=== PATIENT | female | born 1960 | race Caucasian/White ===

== ENCOUNTER 2024-09-23 13:42 | Outpatient (AMB) | payer OTHER, SELFPAY ==
--- NOTE | 2024-09-23 13:45 | HO.SPINEOV ---
Vital Signs 09/23/24 14:16 Height 5 ft 5 in Weight 180 lb BMI 30.0 Intake Visit Reasons: left SI Joint Intake Note: Mr. 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 HPI: This 64-year-old female has a history of back pain where she throws out her back for a couple of days. However in December of 2023 she developed a constant left-sided back pain. This started after she changed job activities. The pain is located to this area. It does not radiate. No numbness or weakness. She tried multiple epidural steroid injections for back pain in the past and more recently a left SI joint injection without success. She also has completed physical therapy chiropractic therapy. She is referred to see if she is a candidate for a left SI joint fusion. PMH: Kidney stone Medications: None Allergies: Ampicillin Social history: Currently a long-term disability. Nonsmoker Physical Exam: Pleasant female in obvious agony. Ambulating is in a flexed position and painful. Flexion of the lumbar spine is painful. Meredith sign is negative. Straight leg raise is negative. SI joint provocative tests are mildly positive. Radiological Studies: MRI of the lumbar spine shows mild lumbar degenerative disc disease. No nerve root compression. Impression/Plan: This patient is suffering from left-sided back pain differential diagnosis lumbago without her cause or sacroiliitis. I am hesitant to offer the patient surgery as she did not respond to a SI joint injection. We decided to repeat the injection. The patient prefers it to be done by a different physician to see if this is more successful. She will follow-up after. Thank you for allowing me to participate in your patients care. total time spent was 50 minutes in counseling ,coordination of plan, personal review of imaging, surgical decision making and subsequent plan Ishaan Javed MD, PhD Spine [facility] Trained Neurosurgeon Director, [facility] Orders: Referrals Pain Management Referral M46.1 - Sacroiliitis, not elsewhere classified Coding Level of Care Code New Pt Level 4 (74214) Diagnoses Sacroiliitis, not elsewhere classified M46.1
--- OUTSIDE RECORDS SUMMARY | 2024-09-23 13:46 | XMS_ITS | Continuity of Care Document ---
Author Organization [facility] Address [address] [facility] [place] [address] Care Team Providers Care Electrical Systems Drafter Name Role Phone ANTHONY TOMPKINS Primary Care Provider ANTHONY TOMPKINS Referring Provider Assessment No assessment recorded. Plan of Treatment Reminders Order Date Submit Date Provider Last Modified By Organization Details Last Modified Time Details Appointments CARD - New Patient (30) 2024 01:00P M Dean Morales MD Not available Not available Not available PCP-Offi ce Visit-30 Min 2024 10:30A M Karen Thurston NP Not available Not available Not available Lab None recorded . Referral None recorded . Procedures None recorded . Surgeries None recorded . Imaging None recorded . Medication Orders None recorded . Patient TargetsNo targets recorded. Patient InstructionsNo instructions recorded. Reason for Referral None Reported. Results Created Date Observation Date Name Description Value Unit Range Abnormal Flag Note LastModifiedBy Organization Detail LastModifiedTime 08/02/2008/02/2024 elect rocar diogr am No observ ation record ed. [email or web address] [facility] [address], [address], 08/02/2024 15:17:48 08/02/20 elect rocar diogr am No observ ation record ed. [email or web address] [facility] [address] [facility] [address], [address], 08/09/2024 08:32:31 Result Notes None recorded. Problems Name Problem SNOMED Code Status Onset Date Resolution Date Notes Provider Name and Address Organization Details Recorded Time Ureteric stone 45672071 Completed 12/26/2019 Karen Howard RN null, [facility] 0 11:01:21 Urinary tract infectious disease 41220749 Completed 12/26/2019 Karen Howard RN null, [facility] 0 11:01:15 Depressive disorder 18645998 Active 2021 Maura Narayan LPN null, [facility] 2 16:14:13 Chronic pain 00097981 Active 2021 Maura Narayan LPN null, [facility] 2 16:14:20 Problem Notes None recorded. Procedures Surgical History Date Name Laterality Status Provider Name and Address Organization Details Recorded Time 06/30/20 19 Date of Last Mammogram completed Kathrin sutherland MA [facility] 04/20/2020 13:37:58 01/20/20 19 excision of cyst completed Mary Hinds [facility] 02/08/2019 09:35:35 12/25/19 19 Date of Last Pap Smear completed Kathrin sutherland MA [facility] 04/20/2020 13:38:16 01/05/20 18 Colposcopy completed Jose Cruz Mantilla MD [facility] 01/04/2018 13:55:31 06/02/20 17 Vulvar Biopsy/Excision completed Jose Cruz Mantilla MD [facility] 06/02/2017 14:05:32 05/29/20 17 Paracervical Nerve Block completed Jose Cruz Mantilla MD [facility] 06/01/2017 09:42:52 05/29/20 17 LEEP completed Jose Cruz Mantilla MD [facility] 06/01/2017 09:42:43 04/24/20 17 established patient counseling (25-39 minutes) completed Jose Cruz Mantilla MD [facility] 05/02/2017 10:53:11 04/06/20 17 Colposcopy completed Jose Cruz Mantilla MD [facility] 04/06/2017 15:29:51 05/26/20 16 EXTRA CORPOREAL SHOCKWAVE LITHOTRIPSY (SURG) completed Yudi Dwight [facility] 05/28/2016 11:38:37 04/14/20 16 EXTRA CORPOREAL SHOCKWAVE LITHOTRIPSY (SURG) completed Sandra Cancino [facility] 04/16/2016 09:23:04 04/14/20 16 EXTRA CORPOREAL SHOCKWAVE LITHOTRIPSY (SURG) completed Annelise Ordonez [facility] 06/02/2016 11:44:09 04/02/20 16 CYSTOSCOPY (SURG) completed Sandra Barak [facility] 04/04/2016 11:19:50 Imaging Results None recorded. Procedure Notes None recorded. Medical Equipment None Reported. Allergies Allergen ID Allergen Name Allergen Category Reaction Reaction Severity Criticality Documentation Date Start Date Code Code System Note Provider Name and Address Organization Details Recorded Time 777008 ampicilli n medicatio n rash Not available Not available 04/01/2016 733 RxNorm Annelise abad [facility] 6 13:51:57 913981 amoxicill in medicatio n nausea Not available Not available 04/01/2016 723 RxNorm Annelise abad [facility] 6 13:52:31 466071 erythromy juancarlos medicatio n Not available Not available Not available 03/23/2017 4053 RxNorm OXANA Cat [facility] 7 14:40:38 Medications Name Sig Start Date Stop Date Status Note LastModified by Organization Details LastModified Time cyclobenza cruz 10 mg tablet TAKE 1/2 TO 1 TAB NEEDED FOR MUSCLE SPASM 2 TIMES A DAY. active as needed -kr Not Available Not Available Not Available methocarba mol 500 mg tablet Take 2 tablets every 8 hours by oral route for 5 days. 01/04 completed Not Available Not Available Not Available prednisone 10 mg tablet TAKE 5 TABLETS BY MOUTH DAILY FOR 2 DAYS, THEN TAKE 4 TABLETS DAILY FOR 1 DAY, THEN TAKE 3 TABLETS DAILY FOR 1 DAY, THEN TAKE 2 TABLETS DAILY FOR 1 DAY, THEN TAKE 1 TABLET DAILY FOR 1 DAY (TAKE ALL DOSES IN THE MORNING, AND NO NSAIDS) 08/02 completed Not Available Not Available Not Available doxycyclin e hyclate 100 mg capsule Take 1 capsule twice a day by oral route for 7 days. 01/03 completed Not Available Not Available Not Available oxybutynin chloride ER 10 mg tablet,ext ended release 24 hr 05/22 completed Not Available Not Available Not Available ibuprofen 800 mg tablet TAKE 1 TABLET BY MOUTH EVERY 8 HOURS NEEDED WITH FOOD OR MILK 08/02 completed Not Available Not Available Not Available alprazolam 1 mg tablet TAKE 1 TABLET BY MOUTH ONCE 1 HOUR PRIOR TO INJECTIO N 08/02 completed Not Available Not Available Not Available chlorzoxaz one 500 mg tablet TAKE 1 TABLET BY MOUTH 2 TO 3 TIMES A DAY DIRECTED FOR MUSCLE SPASM active as needed -kr Not Available Not Available Not Available phenazopyr idine 200 mg tablet 05/22 completed Not Available Not Available Not Available ondansetro n HCl 4 mg tablet 05/22 completed Not Available Not Available Not Available ketorolac 10 mg tablet 05/22 completed Not Available Not Available Not Available oxycodone- acetaminop hen 5 mg-325 mg tablet Take 1 tablet every 8 hours by oral route. 01/04 completed Not Available Not Available Not Available hydromorph one 2 mg tablet 05/22 completed Not Available Not Available Not Available famotidine 20 mg tablet TAKE 1 TABLET BY MOUTH ONCE DAILY AT BEDTIME NEEDED 08/02 completed Not Available Not Available Not Available lorazepam 0.5 mg tablet 01/04 completed Not Available Not Available Not Available tamsulosin 0.4 mg capsule 05/22 completed Not Available Not Available Not Available cephalexin 500 mg capsule Take 1 capsule every 6 hours by oral route for 7 days. 06/30 completed Not Available Not Available Not Available SKELAXIN 400 mg tablet Take 2 tablets 3 times a day by oral route as needed. 08/02 completed Not Available Not Available Not Available gabapentin 300 mg capsule TAKE 1 CAPSULE IN THE MORNING AND AFTERNOO N, AND TAKE 2 CAPS AT BEDTIME 08/02 completed Not Available Not Available Not Available diclofenac sodium 75 mg tablet,del ayed release TAKE 1 TABLET BY MOUTH TWICE DAILY NEEDED FOR PAIN WITH FOOD NO OTHER NSAIDS 08/02 completed Not Available Not Available Not Available diclofenac sodium 50 mg tablet,del ayed release 01/04 completed Not Available Not Available Not Available levofloxac in 500 mg tablet Take 1 tablet every 24 hours by oral route for 6 days. 05/22 completed Not Available Not Available Not Available ondansetro n 4 mg disintegra ting tablet 05/22 completed Not Available Not Available Not Available naproxen 500 mg tablet 05/22 completed Not Available Not Available Not Available diazepam 5 mg tablet 05/22 completed Not Available Not Available Not Available oxycodone 5 mg tablet 07/01 completed Not Available Not Available Not Available cyclobenza cruz 5 mg tablet Take 1 tablet every day by oral route. 01/03 completed Not Available Not Available Not Available 10/03 (28) 1 mg-20 mcg (21)/75 mg (7) tablet TAKE 1 TAB(S) ORALLY ONCE A DAY active Not Available Not Available No t Available Vitamin D3 01/04 completed Not Available Not Available Not Available gabapentin 05/11 completed not taking- AH Not Available Not Available Not Available oxycodone 10 mg tablet 07/01 completed Not Available Not Available Not Available Vitals Date Recorded Body height Body mass index (BMI) Body weight Oxygen saturation Oxygen saturation in Arterial blood by Pulse oximetry Heart rate Systolic blood pressure Diastolic blood pressure Provider Name and Address Organization Details Last Updated DateTime 4 165.1 cm 30.5 kg/m2 84210.4 g 98 % 98 % 101 /min 120 mm[Hg] 86 mm[Hg] Brenda Tong [facility] 4 10:47:40 Social History Question Answer Notes LastModified by Organizat ion Details LastModified Time Tobacco Smoking Status Former Smoker Annelise abad [facility] 04/01/2016 13:54:06 What Is Your Level Of Alcohol Consumption? 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 12/24/2018 Information n ot available 04/07/2019 Are You Sexually Active? Yes Information not available 04/20/2020 Sex: Female Functional Status None recorded. Mental Status None recorded. Family History Relationship Description Onset Age of this Age Resolved Age Notes LastModified by Organization Details LastModified Time Father No current problems or disability Not available 04/01 13:54:27 Mother No current problems or disability Not available 04/01 13:54:27 Maternal Grandfather Kidney disease Not available 2015 13:54:56 Medical History Condition Response diabetes N cancer N HIV or AIDS N arthritis Y heart disease N metal implants N anesthesia allergy/complications N lung disease N asthma N glaucoma N depression N high blood pressure N GERD / reflux N other N CVA/stroke N thyroid disease or other endocrine probl ems N nausea/vomiting Y Gynecological History Statement/Question Response Date of Last Mammogram 06/30/2019 Date of LMP 09/14/2013 Para 5 Perform self breast exam N Living children 5 History of abnormal pap yes x2 Ovarian Cysts N 6 Abortions spontaneous Contraception None Genital Herpes N Fibroids N Gonorrhea/Chlamydia N Date of Last Pap Smear 12/24/2018 Obstetrics History GPAL:G 0 P 0 0 0 0 Past Encounters Encounter ID Performer Location Encounter Start Date Encounter Closed Date Diagnosis/Indication Diagnosis SNOMED-CT Code Diagnosis ICD10 Code Diagnosis Note [id number] Anthony Tompkins MD [facility] [address] [facility] [place] [address] 08/02/2024 13:45:49 08/02/2024 15:14:24 Chronic pain 71869165 G89.29 in back w/ flare that started this year.still w/ painfollow up w/ spine centercont w/ HEP Impaired g lucose tolerance 0642900 R73.02 w/ prior labscheck labs Dizziness 586182145 R42 intermitte ntuncertai n causecont w/ adequate hydrationh x of near syncope so will r/o cardiac origin Near syncope 951526947 R 55 ekg w/ some IVCD-refer to cardiology [id number] Anthony Tompkins MD [facility] [address] [facility] [place] [address] 09/01/2024 10:28:09 09/01/2024 11:42:14 Near syncope 125221232 R55 ekg w/ some IVCD-await ing echo and cardiology consult Dizziness 767474180 R42 intermitte ntnew room spinning dizziness suggestive for mild vertigo.re viewed etiology and treatment options.De clined script for meclizine. reviewed OTC med she can try.cont w/ adequate hydrationT here is also a different type of dizziness she experience s associated w/ the near syncopehx of near syncope so will r/o cardiac origin Health Concerns Section Related Observation LastModified by Organization Detai ls LastModified Time None Recorded Concern Status LastModified by Organization Details LastModified Time None Recorded Payers Encounter Date Sequence Insurance Name Policy Number Policy Jasmine Covered Member ID Jasmine Member ID Guarantor Name 09/01/2024 1 [facility] Glenna Clark [id number] Glenna Clark Notes Date Note Type Note Provider Name and Address Organization Details Recorded Time 09/01/2024 text/html pt presents toda y for follow up near syncope 1 month. RL pt presents to follow up from near syncopeA couple days ago she was in the store- felt like everything drained, feels shitty and sweaty, squatted down and waited for it to pass. Feels weak at the time. Makes her want to lay down.Her dtr and son have similar spells. Takes a few minutes to recover.Doesn't feel palpitations, CP, or dyspnea.Has had these spells since childhood.pt did have a dizzy spell when she laid down last night. Same as prior. Was a room spinning dizziness. Which is different from her near syncope.She does have an upcoming echo and cardiology appt in [place]. Anthony Tompkins MD [address] [place] [address], [place], [address], [facility] 09/05/2024 09:47:36 OBGyn Episode No OBEpisode recorded.
--- OUTSIDE RECORDS SUMMARY | 2024-09-23 13:46 | XMS_ITS | Data Portability ---
Author Organization [facility] Address [address] [facility] [place] [address] Care Team Providers Care Electrical Engineer Name Role Phone ANTHONY COVINGTON Primary Care Provider ANTHONY COVINGTON Referring Provider Assessment No assessment recorded. Plan of Treatment Reminders Order Date Submit Date Provider Last Modified By Organization Details Last Modified Time Details Appointments CARD - New Patient (30) 2024 01:00P M Dean Morales MD Not available Not available Not available PCP-Offic e Visit-30 Min 2024 10:30A M Karen Thurston NP Not available Not available Not available Lab glucose, fingersti ck, blood 2023 024 scott In-Office Order, Internal Use Only DO Not Attach Compendium DO Not Attach Compendium, Do Not Delete/merge, [id number] 05/11/2024 15:37:16 CBC w/ auto diff 2023 024 [facility] (Outpatient Registration) , [address] [place], [address], 05/11/2024 20:23:14 CMP, serum or plasma 2023 024 [facility] (Outpatient Registration) , [address] [place], [address], 05/11/2024 20:48:35 rapid flu (A+B) 2023 024 scott [facility], [address] [place], [address], 05/11/2024 15:37:14 SARS CoV 2 RNA (COVID-19 ), QL, photograph enlarger-PCR, respirato ry specimen 2023 [facility] (Outpatient Registration) , [address] [place], [address], 05/12/2024 10:55:24 HLA-B27, qual 2023 [facility] (Outpatient Registration) , [address] [place], [address], 08/10/2024 14:09:30 CMP, serum or plasma 2023 024 [facility] (Outpatient Registration) , [address] [place], [address], 08/02/2024 16:05:11 HbA1c (hemoglob in A1c), blood 2023 024 [facility] (Outpatient Registration) , [address] [place], [address], 08/02/2024 19:25:13 CBC w/ auto diff 2023 024 [facility] (Outpatient Registration) , [address] [place], [address], 08/02/2024 15:38:42 Referral cardiolog ist referral - several events over the years of near syncope. Dtr has OWEN. Most recent was a month ago- 2023 [email or web address] Dean Morales MD, [address] [place], [address], 09/23/2024 09:41:33 Procedures pulse oximetry (PROC) 2023 scott [facility], [address] , [place], [address], 05/11/2024 15:37:15 Surgeries None recorded. Imaging electroca rdiogram 2023 024 [facility], [address] [facility], [facility] [address], [place], [address], 08/02/2024 15:17:48 US, echocardi ogram, transthor acic, complete, w/ color flow - near syncope, ekg w/ IVCD and suggestiv e for LAE 2023 024 [facility] ([facility]), [address] [facility], [place], [address], 09/22/2024 14:46:22 Medication Orders doxycycli ne hyclate 100 mg capsule [facility]22 [id number] [address] [place], [address], 01/04/2024 16:43:47 cyclobenz aprine 10 mg tablet 2023 024 [facility]/Pharmacy #[id number], [address] [place], [address], 05/11/2024 13:41:51 Patient TargetsNo targets recorded. Patient Instructions Encounter Date Encounter Id Patient Instructions Last Modified By Organization Details Last Modified Time 09/16/2022 [id number] You have had an Urgent Care Visit which is designed to address acute issues. It does not represent an exhaustive evaluation of your symptom complex, but is an attempt to treat and manage the most likely cause of your most pressing physical issues. If you are not improved in the time frame that we have discussed, please seek the advice of your PCP who is in a position to order further diagnostic testing and possible specialist consultation. If your condition is worsening despite the treatment recommendations please do not wait to see your PCP and do proceed to the closest ER where a comprehensive evaluation including consideration to lab and other diagnostic testing as well as consultation is more expeditiously accessible. If you were prescribed medications they have been directly submitted to your pharmacy on file. Please make sure you finish all your medications and if you develop major side effects related to them please do stop taking them and check with your PCP to see if you need to get an alternative medication. If you had any laboratory testing or XRAYs done at today's visit, please make sure you obtain your results from us tomorrow or the time frame discussed at your visit, you may also follow up with your PCP for test results. [email or web address] Not available 09/16/2022 13:30:55 01/04/2024 [id number] As above, Questi ons answered [email or web address] Not available 01/04/2024 19:21:31 Pt acknowleged understanding of the mutual plan of care. Pt's questions were answered concerning any presented medications, treatments, expected outcomes, and reasons for follow up. Given written information and questions were answered. You have had an Urgent Care Visit which is designed to address acute issues. If you are not improved in the time frame that we have discussed, please seek the advice of your PCP who is in a position to order further diagnostic testing and possible specialist consultation. If your condition is worsening despite the treatment recommendations please do not wait to see your PCP and do proceed to the closest ER where a comprehensive evaluation including consideration to lab and other diagnostic testing as well as consultation is more expeditiously accessible If you were prescribed medications they have been directly submitted to your pharmacy on file. Please make sure you finish all your medications and if you develop major side effects related to them please do stop taking them and check with your PCP to see if you need to get an alternative medication. If you had any laboratory testing or XRAYs done at today's visit, please make sure you obtain your results from us tomorrow or the time frame discussed at your visit, you may also follow up with your PCP for test results. 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 Dtr has OWEN. Most recent was a month ago- Referring Physician: Karen Thurston, Internal Medicine, Encounter Date: 08/02/2024 Results Created Date Observation Date Name Description Value Unit Range Abnormal Flag Note LastModifiedBy Organization Detail LastModifiedTime 05/11/20 24 05/11/2024 COMPL ETE BLOOD COUNT AUTO DIFF white blood count 12.65 K/uL 3.5-11 .0 high Not Available [facility] [address] [place] [address], [id number] 05/11/2024 20:23:14 05/11/20 24 05/11/2024 COMPL ETE BLOOD COUNT AUTO DIFF red blood count 4.68 M/uL 3.60-4 .80 normal Not Available [facility] [address] [place] [address], [id number] 05/11/2024 20:23:14 05/11/20 24 05/11/2024 COMPL ETE BLOOD COUNT AUTO DIFF hemoglobin 14.5 g/dL 12.0-1 6.0 normal Not Available [facility] [address] [place] [address], [id number] 05/11/2024 20:23:14 05/11/20 24 05/11/2024 COMPL ETE BLOOD COUNT AUTO DIFF hematocrit 41.9 % 36.0-4 8.0 normal Not Available [facility] [address] [place] [address], [id number] 05/11/2024 20:23:14 05/11/20 24 05/11/2024 COMPL ETE BLOOD COUNT AUTO DIFF mean corpuscular volume 89.5 fL 79.0-9 8.0 normal Not Available [facility] [address] [place] [address], [id number] 05/11/2024 20:23:14 05/11/20 24 05/11/2024 COMPL ETE BLOOD COUNT AUTO DIFF mean corpuscular hemoglobin 31.0 pg 25.4-3 4.6 normal Not Available [facility] [address] [place] [address], [id number] 05/11/2024 20:23:14 05/11/20 24 05/11/2024 COMPL ETE BLOOD COUNT AUTO DIFF mean corpuscular HGB conc 34.6 g/dL 30.0-3 6.0 normal Not Available [facility] [address] [place] [address], [id number] 05/11/2024 20:23:14 05/11/20 24 05/11/2024 COMPL ETE BLOOD COUNT AUTO DIFF red cell distribution width 12.7 % 11.5-1 4.5 normal Not Available [facility] [address] [place], [address] 05/11/2024 20:23:14 05/11/20 24 05/11/2024 COMPL ETE BLOOD COUNT AUTO DIFF platelet count 289 K/uL 150-40 0 normal Not Available [facility] [address] [place] [address], [id number] 05/11/2024 20:23:14 05/11/20 24 05/11/2024 COMPL ETE BLOOD COUNT AUTO DIFF neutrophils percent auto 80.0 % 35.0-6 6.0 high Not Available [facility] [address] [place] [address], [id number] 05/11/2024 20:23:14 05/11/20 24 05/11/2024 COMPL ETE BLOOD COUNT AUTO DIFF imm gran pct auto 0.4 % 0.0-0. 6 normal Not Available [facility] [address] [place] [address], [id number] 05/11/2024 20:23:14 05/11/20 24 05/11/2024 COMPL ETE BLOOD COUNT AUTO DIFF lymphocytes percent auto 13.6 % 25.0-4 5.0 low Not Available [facility] [address] [place] [address], [id number] 05/11/2024 20:23:14 05/11/20 24 05/11/2024 COMPL ETE BLOOD COUNT AUTO DIFF monocytes percent auto 5.6 % 0.0-13 .0 normal Not Available [facility] [address] [place] [address], [id number] 05/11/2024 20:23:14 05/11/20 24 05/11/2024 COMPL ETE BLOOD COUNT AUTO DIFF eosinophils percent auto 0.2 % 0.0-8. 0 normal Not Available [facility] [address] [place] [address], [id number] 05/11/2024 20:23:14 05/11/20 24 05/11/2024 COMPL ETE BLOOD COUNT AUTO DIFF basophils percent auto 0.2 % 0.0-1. 0 normal Not Available [facility] [address] [place] [address], [id number] 05/11/2024 20:23:14 05/11/20 24 05/11/2024 COMPL ETE BLOOD COUNT AUTO DIFF NRBC pct auto 0.0 /100_ WBC 0.0 normal Not Available [facility] [address] [place] [address], [id number] 05/11/2024 20:23:14 05/11/20 24 05/11/2024 COMPL ETE BLOOD COUNT AUTO DIFF neutrophils absolute auto 10.12 K/uL 1.5-7. 5 high Not Available [facility] [address] [place] [address], [id number] 05/11/2024 20:23:14 05/11/20 24 05/11/2024 COMPL ETE BLOOD COUNT AUTO DIFF imm gran abs auto 0.05 K/uL 0.00-0 .09 normal Not Available [facility] [address] [place] [address], [id number] 05/11/2024 20:23:14 05/11/20 24 05/11/2024 COMPL ETE BLOOD COUNT AUTO DIFF lymphocytes absolute auto 1.72 K/uL 0.8-4. 8 normal Not Available [facility] [address] [place] [address], [id number] 05/11/2024 20:23:14 05/11/20 24 05/11/2024 COMPL ETE BLOOD COUNT AUTO DIFF monocytes absolute auto 0.71 K/uL 0.4-1. 3 normal Not Available [facility] [address] [place] [address], [id number] 05/11/2024 20:23:14 05/11/20 24 05/11/2024 COMPL ETE BLOOD COUNT AUTO DIFF eosinophils absolute auto 0.02 K/uL 0.0-0. 8 normal Not Available [facility] [address] [place] [address], [id number] 05/11/2024 20:23:14 05/11/20 24 05/11/2024 COMPL ETE BLOOD COUNT AUTO DIFF basophils absolute auto 0.03 K/uL 0.0-0. 6 normal Not Available [facility] [address] [place] [address], [id number] 05/11/2024 20:23:14 05/11/20 24 05/11/2024 COMPL ETE BLOOD COUNT AUTO DIFF NRBC abs auto 0.00 K/uL 0.00 normal Not Available [facility] [address] [place], [address] 05/11/2024 20:23:14 05/11/20 24 05/11/2024 COMPR EHENS LUZMA MET. PANEL sodium 144 mmol/ L 136-14 5 normal Not Available [facility] [address] [place] [address], [id number] 05/11/2024 20:48:35 05/11/20 24 05/11/2024 COMPR EHENS LUZMA MET. PANEL potassium 3.65 mmol/ L 3.5-5. 1 normal Not Available [facility] [address] [place] [address], [id number] 05/11/2024 20:48:35 05/11/20 24 05/11/2024 COMPR EHENS LUZMA MET. PANEL chloride 109 mmol/ L 98-107 high Not Available [facility] [address] [place] [address], [id number] 05/11/2024 20:48:35 05/11/20 24 05/11/2024 COMPR EHENS LUZMA MET. PANEL carbon dioxide 21 mmol/ L 22-29 low Not Available [facility] [address] [place] [address], [id number] 05/11/2024 20:48:35 05/11/20 24 05/11/2024 COMPR EHENS LUZMA MET. PANEL anion gap 17 mmol/ L 10-20 normal Not Available [facility] [address] [place] [address], [id number] 05/11/2024 20:48:35 05/11/20 24 05/11/2024 COMPR EHENS LUZMA MET. PANEL blood urea nitrogen 34 mg/dL 8-23 high Not Available [facility] [address] [place] [address], [id number] 05/11/2024 20:48:35 05/11/20 24 05/11/2024 COMPR EHENS LUZMA MET. PANEL creatinine 0.65 mg/dL 0.51-0 .95 normal Not Available [facility] [address] [place] [address], [id number] 05/11/2024 20:48:35 05/11/20 24 05/11/2024 COMPR EHENS LUZMA MET. PANEL estimated glomerular filt rate 99 GFR Value : mL/mi n/1.7 3 squar e meter s Calcu latio n: CKD-E PI Creat inine Equat ion (2020 ) Chron ic Kidne y Disea se is defin ed as eithe r of the follo wing prese nt for >= 3 month s: - GFR less than 60 mL/mi n/1.7 3 squar e meter s. - Micro album in:Ur . Creat inine Ratio >= 30 mg/g or other marke rs of kidne y damag e Kidne y failu re is less than 15 mL/mi n/1.7 3 squar e meter s This test is not perfo rmed in patie nts under the age of 18. Not Available [facility] [address] [place], [address] 05/11/2024 20:48:35 05/11/20 24 05/11/2024 COMPR EHENS LUZMA MET. PANEL glucose 154 mg/dL 82-115 high Not Available [facility] [address] [place], [address] 05/11/2024 20:48:35 05/11/20 24 05/11/2024 COMPR EHENS LUZMA MET. PANEL calcium 9.2 mg/dL 8.8-10 .2 normal Not Available [facility] [address] [place], [address] 05/11/2024 20:48:35 05/11/20 24 05/11/2024 COMPR EHENS LUZMA MET. PANEL bilirubin total 0.5 mg/dL 0.2-1. 2 normal Not Available [facility] [address] [place], [address] 05/11/2024 20:48:35 05/11/20 24 05/11/2024 COMPR EHENS LUZMA MET. PANEL aspartate amino transferase 14 U/L 5-32 normal Not Available [facility] [address] [place], [address] 05/11/2024 20:48:35 05/11/20 24 05/11/2024 COMPR EHENS LUZMA MET. PANEL alanine aminotransfe rase 10 U/L 5-33 normal Not Available [facility] [address] [place], [address] 05/11/2024 20:48:35 05/11/20 24 05/11/2024 COMPR EHENS LUZMA MET. PANEL total protein 6.8 g/dL 6.4-8. 3 normal Not Available [facility] [address] [place], [address] 05/11/2024 20:48:35 05/11/20 24 05/11/2024 COMPR EHENS LUZMA MET. PANEL albumin level 4.2 g/dL 3.5-5. 2 normal Not Available [facility] [address] [place] [address], 76494 05/11/2024 20:48:35 05/11/20 24 05/11/2024 COMPR EHENS LUZMA MET. PANEL globulin 2.6 gm/dL 2.0-3. 5 normal Not Available [facility] [address] [place], [address] 05/11/2024 20:48:35 05/11/20 24 05/11/2024 COMPR EHENS LUZMA MET. PANEL albumin globulin ratio 1.7 % 1.1-2. 5 normal Not Available [facility] [address] [place], [address] 05/11/2024 20:48:35 05/11/20 24 05/11/2024 COMPR EHENS LUZMA MET. PANEL alkaline phosphatase 82 U/L 35-104 normal Not Available [facility] [address] [place] [address], [id number] 05/11/2024 20:48:35 05/11/20 24 05/12/2024 SARS- COV-2 (NAAT ) sars-cov-2 NOT DETECT ED not detect . The Aptim a SARS- CoV-2 assay is a nucle ic acid ampli ficat ion in vitro diagn ostic test inten ded for the quali tativ e detec tion of RNA from SARS- CoV-2 using Trans cript ion Media aimee Ampli ficat ion (TMA) isola aimee and purif ied from nasop haryn geal (PRODUCT TEST ENGINEER), nasal , mid-t urbin ate, and oroph aryng eal (OP) swab speci mens obtai stephanie from indiv idual s meeti ng COVID -19 clini sugey and/o r epide miolo gical crite campos. The Aptim a TMA metho d is equiv alent in sensi tivit y and speci ficit y to metho ds utili zing PCR and RT-PC R. Resul ts are for the ident ifica tion of SARS- CoV-2 RNA which is gener ally detec table in upper respi rator y sampl es durin g the acute phase of infec tion. Posit luzma resul ts are indic ative of the prese nce of SARS- CoV-2 RNA; clini sugey corre latio n with patie nt histo ry and other diagn ostic infor matio n is neces maximilian to deter mine patie nt infec tion statu s. Posit luzma resul ts do not rule out bacte rial infec tion or co-in fecti on with other virus es. Negat luzma resul ts do not precl ude SARS- CoV-2 infec tion and shoul d not be used as the sole basis for patie nt manag ement decis ions. Negat luzma resul ts must be combi stephanie with clini sugey obser vatio ns, patie nt histo ry, and epide miolo gical infor matio n. The Aptim a SARS- CoV-2 assay is only for use under the Food and Drug Admin istra tion' s Emerg ency Use Autho rizat ion (EUA) . Not Available [facility] [address] [place] [address], [id number] 05/12/2024 10:55:24 05/11/20 24 05/11/2024 rapid flu (A+B) Flu Type A negati ve Not Available [address] [place], [address], 05/11/2024 13:57:41 05/11/20 24 05/11/2024 rapid flu (A+B) Flu Type B negati ve Not Available [address] [place], [address], 05/11/2024 13:57:41 05/11/20 24 05/11/2024 rapid flu (A+B) Internal Control Valid Not Available [address] [place], [address], 05/11/2024 13:57:41 05/11/20 24 05/11/2024 rapid flu (A+B) Lot # [id number] Not Available [address] [place], [address], 05/11/2024 13:57:41 05/11/20 24 05/11/2024 rapid flu (A+B) Exp. Date 5 Not Available [address] [place], [address], 05/11/2024 13:57:41 05/11/20 24 05/11/2024 pulse oxime try (PROC ) Unknown Analyte 103 Not Available [address] [place], [address], 05/11/2024 13:57:42 05/11/20 24 05/11/2024 pulse oxime try (PROC ) Unknown Analyte 97 Not Available [address] [place] [place], [address], 05/11/2024 13:57:42 05/11/20 24 05/11/2024 glucjoelle kelley se, blood Glucose Result- Ref Range (70 - 106 mg/dl) 171 Not Available In-Of fice Order Internal Use Only DO Not Attach Compendium DO Not Attach Compendium, Do Not Delete/merge, [id number] 05/11/2024 13:58:21 05/11/2005/11/2024 glucjoelle kelley se, blood Lot # [id number] Not Available In-Office Order Internal Use Only DO Not Attach Compendium DO Not Attach Compendium, Do Not Delete/merge, [id number] 05/11/2024 13:58:21 05/11/20 24 05/11/2024 gluco se, finge rstic k, blood Exp Date 5 Not Available In-Office Order Internal Use Only DO Not Attach Compendium DO Not Attach Compendium, Do Not Delete/merge, [id number] 05/11/2024 13:58:21 08/02/20 24 08/02/2024 COMPL ETE BLOOD COUNT AUTO DIFF white blood count 10.42 K/uL 3.5-11 .0 normal Not Available [facility] [address] [place] [address], [id number] 08/02/2024 15:38:42 08/02/20 24 08/02/2024 COMPL ETE BLOOD COUNT AUTO DIFF red blood count 4.83 M/uL 3.60-4 .80 high Not Available [facility] [address] [place] [address], [id number] 08/02/2024 15:38:42 08/02/20 24 08/02/2024 COMPL ETE BLOOD COUNT AUTO DIFF hemoglobin 14.5 g/dL 12.0-1 6.0 normal Not Available [facility] [address] [place] [address], [id number] 08/02/2024 15:38:42 08/02/20 24 08/02/2024 COMPL ETE BLOOD COUNT AUTO DIFF hematocrit 44.7 % 36.0-4 8.0 normal Not Available [facility] [address] [place] [address], [id number] 08/02/2024 15:38:42 08/02/20 24 08/02/2024 COMPL ETE BLOOD COUNT AUTO DIFF mean corpuscular volume 92.5 fL 79.0-9 8.0 normal Not Available [facility] [address] [place] [address], 42505 08/02/2024 15:38:42 08/02/20 24 08/02/2024 COMPL ETE BLOOD COUNT AUTO DIFF mean corpuscular hemoglobin 30.0 pg 25.4-3 4.6 normal Not Available [facility] [address] [place] [address], [id number] 08/02/2024 15:38:42 08/02/20 24 08/02/2024 COMPL ETE BLOOD COUNT AUTO DIFF mean corpuscular HGB conc 32.4 g/dL 30.0-3 6.0 normal Not Available [facility] [address] [place], [address] 08/02/2024 15:38:42 08/02/20 24 08/02/2024 COMPL ETE BLOOD COUNT AUTO DIFF red cell distribution width 13.6 % 11.5-1 4.5 normal Not Available [facility] [address] [place], [address] 08/02/2024 15:38:42 08/02/20 24 08/02/2024 COMPL ETE BLOOD COUNT AUTO DIFF platelet count 309 K/uL 150-40 0 normal Not Available [facility] [address] [place], [address] 08/02/2024 15:38:42 08/02/20 24 08/02/2024 COMPL ETE BLOOD COUNT AUTO DIFF neutrophils percent auto 63.2 % 35.0-6 6.0 normal Not Available [facility] [address] [place] [address], [id number] 08/02/2024 15:38:42 08/02/20 24 08/02/2024 COMPL ETE BLOOD COUNT AUTO DIFF lymphocytes percent auto 29.1 % 25.0-4 5.0 normal Not Available [facility] [address] [place] [address], 70474 08/02/2024 15:38:42 08/02/20 24 08/02/2024 COMPL ETE BLOOD COUNT AUTO DIFF monocytes percent auto 6.7 % 0.0-13 .0 normal Not Available [facility] [address] [place] [address], [id number] 08/02/2024 15:38:42 08/02/20 24 08/02/2024 COMPL ETE BLOOD COUNT AUTO DIFF eosinophils percent auto 0.8 % 0.0-8. 0 normal Not Available [facility] [address] [place] [address], [id number] 08/02/2024 15:38:42 08/02/20 24 08/02/2024 COMPL ETE BLOOD COUNT AUTO DIFF basophils percent auto 0.2 % 0.0-1. 0 normal Not Available [facility] [address] [place] [address], [id number] 08/02/2024 15:38:42 08/02/20 24 08/02/2024 COMPL ETE BLOOD COUNT AUTO DIFF neutrophils absolute auto 6.59 K/uL 1.5-7. 5 normal Not Available [facility] [address] [place], [address] 08/02/2024 15:38:42 08/02/20 24 08/02/2024 COMPL ETE BLOOD COUNT AUTO DIFF lymphocytes absolute auto 3.03 K/uL 0.8-4. 8 normal Not Available [facility] [address] [place] [address], [id number] 08/02/2024 15:38:42 08/02/20 24 08/02/2024 COMPL ETE BLOOD COUNT AUTO DIFF monocytes absolute auto 0.70 K/uL 0.4-1. 3 normal Not Available [facility] [address] [place] [address], 42165 08/02/2024 15:38:42 08/02/20 24 08/02/2024 COMPL ETE BLOOD COUNT AUTO DIFF eosinophils absolute auto 0.08 K/uL 0.0-0. 8 normal Not Available [facility] [address] [place] [address], [id number] 08/02/2024 15:38:42 08/02/20 24 08/02/2024 COMPL ETE BLOOD COUNT AUTO DIFF basophils absolute auto 0.02 K/uL 0.0-0. 6 normal Not Available [facility] [address] [place] [address], [id number] 08/02/2024 15:38:42 08/02/20 24 08/02/2024 COMPR EHENS LUZMA MET. PANEL sodium 139 mmol/ L 136-14 5 normal Not Available [facility] [address] [place] [address], [id number] 08/02/2024 16:05:11 08/02/20 24 08/02/2024 COMPR EHENS LUZMA MET. PANEL potassium 3.9 mmol/ L 3.5-5. 1 normal Not Available [facility] [address] [place] [address], 69057 08/02/2024 16:05:11 08/02/20 24 08/02/2024 COMPR EHENS LUZMA MET. PANEL chloride 101 mmol/ L 98-107 normal Not Available [facility] [address] [place] [address], [id number] 08/02/2024 16:05:11 08/02/20 24 08/02/2024 COMPR EHENS LUZMA MET. PANEL carbon dioxide 27.5 mmol/ L 22-29 normal Not Available [facility] [address] [place], [address] 08/02/2024 16:05:11 08/02/20 24 08/02/2024 COMPR EHENS LUZMA MET. PANEL anion gap 15 mmol/ L 10-20 normal Not Available [facility] [address] [place], [address] 08/02/2024 16:05:11 08/02/20 24 08/02/2024 COMPR EHENS LUZMA MET. PANEL blood urea nitrogen 27 mg/dL 8-23 high Not Available [facility] Department [address] [place], [address] 08/02/2024 16:05:11 08/02/20 24 08/02/2024 COMPR EHENS LUZMA MET. PANEL creatinine 0.79 mg/dL 0.50-0 .90 normal Not Available [facility] [address] [place] [address], [address] 08/02/2024 16:05:11 08/02/20 24 08/02/2024 COMPR EHENS LUZMA MET. PANEL estimated glomerular filt rate 84 GFR Value : mL/mi n/1.7 3 squar e meter s Calcu latio n: CKD-E PI Creat inine Equat ion (2020 ) Chron ic Kidne y Disea se is defin ed as eithe r of the follo wing prese nt for >= 3 month s: - GFR less than 60 mL/mi n/1.7 3 squar e meter s. - Micro album in:Ur . Creat inine Ratio >= 30 mg/g or other marke rs of kidne y damag e Kidne y failu re is less than 15 mL/mi n/1.7 3 squar e meter s This test is not perfo rmed in patie nts under the age of 18. Not Available [facility] [address] [place] [address], [address] 08/02/2024 16:05:11 08/02/20 24 08/02/2024 COMPR EHENS LUZMA MET. PANEL glucose 101 mg/dL 82-115 normal Not Available [facility] [address] [place], [address] 08/02/2024 16:05:11 08/02/20 24 08/02/2024 COMPR EHENS LUZMA MET. PANEL calcium 9.8 mg/dL 8.8-10 .2 normal Not Available [facility] [address] [place], [address] 08/02/2024 16:05:11 08/02/20 24 08/02/2024 COMPR EHENS LUZMA MET. PANEL bilirubin total 0.5 mg/dL 0.2-1. 2 normal Not Available [facility] [address] [place], [address] 08/02/2024 16:05:11 08/02/20 24 08/02/2024 COMPR EHENS LUZMA MET. PANEL aspartate amino transferase 18 U/L 5-32 normal Not Available [facility] Department [address] [place], [address] 08/02/2024 16:05:11 08/02/20 24 08/02/2024 COMPR EHENS LUZMA MET. PANEL alanine aminotransfe rase < 5 U/L 5-33 low Not Available [facility] Department [address] [place], [address] 08/02/2024 16:05:11 08/02/20 24 08/02/2024 COMPR EHENS LUZMA MET. PANEL total protein 7.6 g/dL 6.4-8. 3 normal Not Available [facility] [address] [place], [address] 08/02/2024 16:05:11 08/02/20 24 08/02/2024 COMPR EHENS LUZMA MET. PANEL albumin level 4.5 g/dL 3.5-5. 2 normal Not Available [facility] [address] [place], [address] 08/02/2024 16:05:11 08/02/20 24 08/02/2024 COMPR EHENS LUZMA MET. PANEL globulin 3.1 gm/dL 2.0-3. 5 normal Not Available [facility] [address] [place], [address] 08/02/2024 16:05:11 08/02/20 24 08/02/2024 COMPR EHENS LUZMA MET. PANEL albumin globulin ratio 1.5 % 1.1-2. 5 normal Not Available [facility] [address] [place], [address] 08/02/2024 16:05:11 08/02/20 24 08/02/2024 COMPR CECILIA LUZMA MET. PANEL alkaline phosphatase 92 U/L 35-104 normal Not Available [facility] Department [address] [place], [address] 08/02/2024 16:05:11 08/02/20 24 08/02/2024 HEMOG LOBIN A1C hemoglobin A1C % 5.5 % 4.0-5. 7 normal % of the total HgB Inter preta tion ----- ----- ----- --- ----- ----- ----- - <5.7 Consi stent with the absen ce of diabe balbir 5.7-6 .4 Consi stent with incre ased risk for diabe balbir (pred iabet es) > or = to 6.5 Consi stent with Diabe balbir Not Available [facility] [address] [place], [address] 08/02/2024 19:25:13 08/02/20 24 08/10/2024 HLA-B 27 hla-B27 NEGATI VE . HLA-B *27 Negat luzma B27 allel e inter preta tion for all loci based on IMGT/ HLA datab ase versi on 3.51. 0 This test was devel oped and its perfo rmanc e blake cteri stics deter mined by [facility]. It has not been clear ed or appro nickie by the Food and Drug Admin istra tion. [facility] CLIA ID [id number] ines r [id number] This test was perfo rmed using Polym erase Chain React ion (PCR) and Seque nce Speci fic Oligo nucle otide Probe s (SSOP ) techn ique. Seque nce Based Typin g (SBT) may be used as a suppl ement al metho d when neces maximilian. If you have quest ions, pleas e call HLA custo sohail servi ce at [phone] or email at [email or web address]. Perfo rmed at: 01 - [facility] [place] [facility] [address] , [place] [address] Lab Direc tor: Fely phillips PhD, Phone : [phone] Not Available [facility] [address] [facility], [place], [address] 08/10/2024 14:09:30 08/02/20 24 08/02/2024 elect rocar diogr am No observ ation record ed. [email or web address] [facility] [address], [address], 08/02/2024 15:17:48 08/02/20 elect rocar diogr am No observ ation record ed. [email or web address] [facility] [address], [address], 08/09/2024 08:32:31 Result Notes None recorded. Problems Name Problem SNOMED Code Status Onset Date Resolution Date Notes Provider Name and Address Organization Details Recorded Time Ureteric stone 56054987 Completed 12/26/2019 JB Jones, [facility] 0 11:01:21 Urinary tract infectious disease 32068062 Completed 12/26/2019 Karen Howard RN null, [facility] 0 11:01:15 Depressive disorder 09935132 Active 2021 CHINO Barillas, [facility] 2 16:14:13 Chronic pain 09894745 Active 2021 CHINO Barillas, [facility] 2 16:14:20 Problem Notes None recorded. Procedures Surgical History Date Name Laterality Status Provider Name and Address Organization Details Recorded Time 06/30/20 19 Date of Last Mammogram completed Kathrin sutherland MA [facility] 04/20/2020 13:37:58 01/20/20 19 excision of cyst completed Mary Hinds [facility] 02/08/2019 09:35:35 12/25/19 19 Date of Last Pap Smear completed Kathrin sutherland MA [facility] 04/20/2020 13:38:16 01/05/20 18 Colposcopy completed Jose Cruz Mantilla MD [facility] 01/04/2018 13:55:31 06/02/20 17 Vulvar Biopsy/Excision completed Jose Cruz Mantilla MD [facility] 06/02/2017 14:05:32 05/29/20 17 Paracervical Nerve Block completed Jose Cruz Mantilla MD [facility] 06/01/2017 09:42:52 05/29/20 17 LEEP completed Jose Cruz Mantilla MD [facility] 06/01/2017 09:42:43 04/24/20 17 established patient counseling (25-39 minutes) completed Jose Cruz Mantilla MD [facility] 05/02/2017 10:53:11 04/06/20 17 Colposcopy completed Jose Cruz Mantilla MD [facility] 04/06/2017 15:29:51 05/26/20 16 EXTRA CORPOREAL SHOCKWAVE LITHOTRIPSY (SURG) completed Yudi Quintanilla [facility] 05/28/2016 11:38:37 04/14/20 16 EXTRA CORPOREAL SHOCKWAVE LITHOTRIPSY (SURG) completed Sandra Cancino [facility] 04/16/2016 09:23:04 04/14/20 16 EXTRA CORPOREAL SHOCKWAVE LITHOTRIPSY (SURG) completed Annelise Ordonez [facility] 06/02/2016 11:44:09 04/02/20 16 CYSTOSCOPY (SURG) completed Sandra Cancino [facility] 04/04/2016 11:19:50 Imaging Results Imaging Date Name Status LastModified by Organization Details LastModified Time 08/02/2024 electrocardiogram completed [email or web address] [facility] [address] [facility] [address], [place], [address], 08/02/2024 15:17:48 08/02/2024 electrocardiogram completed [email or web address] [facility] [address] [facility] [address], [place], [address], 08/09/2024 08:32:31 Procedure Notes None recorded. Medical Equipment None Reported. Allergies Allergen ID Allergen Name Allergen Category Reaction Reaction Severity Criticality Documentation Date Start Date Code Code System Note Provider Name and Address Organization Details Recorded Time [id number] ampicilli n medicatio n rash Not available Not available 04/01/2016 733 RxNorm Annelise abad [facility] 6 13:51:57 [id number] amoxicill in medicatio n nausea Not available Not available 04/01/2016 723 RxNorm Annelise abad [facility] 6 13:52:31 619956 erythromy juancarlos medicatio n Not available Not available Not available 03/23/2017 4053 RxNorm OXANA Cat [facility] 7 14:40:38 Medications Name Sig Start [...] ONCE 1 HOUR PRIOR TO INJECTIO N 11/19 /2024 completed Not Available Not Available Not Available [...] Available Vitals Date Recorded Body height Body temperature Oxygen saturation Oxygen saturation in Arterial blood by Pulse oximetry Heart rate Systolic blood pressure Diastolic blood pressure Provider Name and Address Organization Details Last Updated DateTime 4 165.1 cm 97.7 [degF] 97 % 97 % 92 /min 118 mm[Hg] 78 mm[Hg] Glenna Gresham MA [facility] 4 16:48:52 Date Recorded Body height Body temperature Oxygen saturation Oxygen saturation in Arterial blood by Pulse oximetry Heart rate Heart rate Respiratory rate Heart rate Systolic blood pressure Diastolic blood pressure Systolic blood pressure Diastolic blood pressure Systolic blood pressure Diastolic blood pressure Systolic blood pressure Diastolic blood pressure Provider Name and Address Organization Details Last Updated DateTime 4 165.1 cm 98.7 [degF] 97 % 97 % 103 /min 90 /min 98 /min 106 /min 128 mm[Hg] 76 mm[Hg] 124 mm[Hg] 78 mm[Hg] 126 mm[Hg] 86 mm[Hg] 130 mm[Hg] 82 mm[Hg] Sofia Sun [facility] 4 14:17:38 Date Recorded Body height Body mass index (BMI) Body weight Heart rate Oxygen saturation Oxygen saturation in Arterial blood by Pulse oximetry Systolic blood pressure Diastolic blood pressure Provider Name and Address Organization Details Last Updated DateTime 4 165.1 cm 30.6 kg/m2 89235 g 92 /min 96 % 96 % 120 mm[Hg] 90 mm[Hg] Komal Dyson MA [facility] 4 13:56:06 Date Recorded Body height Body mass index (BMI) Body weight Oxygen saturation Oxygen saturation in Arterial blood by Pulse oximetry Heart rate Systolic blood pressure Diastolic blood pressure Provider Name and Address Organization Details Last Updated DateTime 4 165.1 cm 30.5 kg/m2 59263.4 g 98 % 98 % 101 /min 120 mm[Hg] 86 mm[Hg] Brenda Smithaddie [facility] 4 10:47:40 Date Recorded Body temperature Oxygen saturation Oxygen saturation in Arterial blood by Pulse oximetry Heart rate Systolic blood pressure Diastolic blood pressure Provider Name and Address Organization Details Last Updated DateTime 3 97.5 [degF] 96 % 96 % 76 /min 148 mm[Hg] 90 mm[Hg] Brigette Israel [facility] 3 12:56:00 Social History Question Answer Notes LastModified by Organizat ion Details LastModified Time Tobacco Smoking Status Former Smoker Annelise abad [facility] 04/01/2016 13:54:06 What Is Your Level Of Alcohol Consumption? 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 12/24/2018 Information n ot available 04/07/2019 Are You Sexually Active? Yes [email or web address] Information not available 04/20/2020 Sex: Female Functional [...] available 2015 13:54:56 Medical History Condition Response HIV or AIDS N asthma N glaucoma N GERD / reflux N diabetes N other N thyroid disease or other endocrine probl ems N nausea/vomiting Y cancer N arthritis Y depression N high blood pressure N heart disease N metal implants N anesthesia allergy/complications N lung disease N CVA/stroke N Gynecological History Statement/Question Response Date of Last [...] SNOMED-CT Code Diagnosis ICD10 Code Diagnosis Note [id number] Annelise Ordonez [address] [address] 04/01/2016 13:34:11 04/01/2016 15:01:11 Ureteric stone 91234318 N20.1 I discussed options with Glenna and because of a possible UTI I recommend a stent placement followed by ESWL and stent removal. Urinary tr act infectious disease 58914146 N39.0 I started her on Levaquin pending the urine culture [id number] Domenic Sandoval MD [address] [address] 05/22/2016 10:45:07 05/22/2016 12:34:50 Kidney stone 72277494 N20.0 Glenna still has a 4-5 mm left renal stone and pain. We discussed treatment options and she wants to repeat the ESWL [id number] Domenic Sandoval MD [address] [address] 07/01/2016 14:44:40 07/01/2016 15:38:06 Kidney stone 51722271 N20.0 Glenna is s/p eswl AND has no c/o. KUB is negative for stones. We discussed prevention . f/u as needed. [id number] Jose Cruz Mantilla MD [facility] [address] [place] [address] [address] [place] [address] 03/23/2017 14:09:09 03/23/2017 16:44:29 Abnormal cervical Papanicolaou smear 250897374 R87.619 Discussed recommenda tion for colposcopy . Reviewed procedure and risks. Patient scheduled for colpo in 2 weeks. All questions answered and patient verbalized understand ing. HPV - Gabi n papillomavirus test positive 885171903 R87.257 [id number] Jose Cruz Mantilla MD [facility] [address] [place] [address] 04/06/2017 14:42:15 04/06/2017 16:48:36 Abnormal vaginal Papanicolaou smear 219641161 R87.629 Abnormal c ervical Papanicolaou smear 937547127 R87.619 Discussed recommenda tion for colposcopy . Reviewed procedure and risks. colposcopy completed without difficulty . All questions answered and patient verbalized understand ing. HPV - Gabi n papillomavirus test positive 276094870 R87.242 [id number] Jose Cruz Mantilla MD [facility] [address] [place] [address] 04/24/2017 15:22:28 05/04/2017 14:04:08 Cervical intraepithelial neoplasia grade 2 825337239 N87.1 Patient with JUANCARLOS 1 and 2. Because of presence of High Grade Dysplasia, recommend LEEP or at very least an ablative procedure. Discussed etiology and possible developmen t into invasive cervical cancer. Patient agrees to LEEP procedure. Risks of LEEP discussed including but not limited to bleeding, infection, damage to surroundin g structures , need for additional procedure or surgery, and incomplete removal of abnormal cells. All questions answered and patient verbalized understand ing. Will schedule. [id number] Jose Cruz Mantilla MD [facility] [address] [place] [address] 05/29/2017 10:51:39 05/29/2017 13:24:52 Dysplasia of cervix 74267763 N87.9 Unable to perform LEEP in the office due to posterior lip of the cervix being flush with posterior vaginal wall. Will schedule procedure in OR. All questions answered and patient verbalized understand ing. [id number] Jose Cruz Mantilla MD [facility] [address] [place] [address] 06/02/2017 12:36:23 06/02/2017 13:53:16 Vaginitis and vulvovaginitis 805375404 N76.0 Abscess of vulva 7812460 1 N76.4 I&D performed without difficulty . Because of surroundin g erythema will start patient on keflex. No allergy to penicillin itself, but amoxicilli n caused nausea. Keflex rx sent. Call or RTO with return or worsening of symptoms. All questions answered and patient verbalized understand ing. Follow up for LEEP in early June or prn. [id number] Wilber Basurto III, MD [facility] [address] [place] [address] 06/30/2017 08:26:08 06/30/2017 09:23:01 Thoracic back pain 931699594 M54.6 on exam she is in moderate distress, crying during visit. ambulating normally, L sided paraspinou s muscl? e tenderness but no palpable spasm however she is flinching away during exam. no midline tenderenss or deformitie s. limited extension and L rotation of cervical spine. no nuchal rigdity. xray today no acute findings. mass test driver shows no suspicious activity. 4 tablets percocet provided. educated on medication side effects. educated on red flags, if these appear seek ER care. F/U with PCP this week for further management . [id number] Jose Cruz Mantilla MD [address] [address] 07/02/2017 09:53:42 07/02/2017 10:46:55 Postoperative visit 641936444 Z08 Patient doing well postop. Explained positive margins on LEEP specimen posteriorl y where cervix is flush with vagina. Will have patient follow up in 4 weeks or prn. Will also need repeat PAP with ECC in 4-6 months due to positive margins. ECC was negative. All questions answered and patient verbalized understand ing. [id number] Jose Cruz Mantilla MD [address] [address] 08/13/2017 11:14:06 08/13/2017 11:49:42 Postoperative visit 440513666 Z08 ? Dysplasia of cervix 7339 1008 N87.9 Patient doing well postop. Explained positive margins on LEEP specimen posteriorl y where cervix is flush with vagina. Repeat PAP with ECC in 4 months due to positive margins. ECC was negative. All questions answered and patient verbalized understand ing. [id number] Jose Cruz Mantilla MD [facility] [address] [place] [phone] 12/10/2017 08:54:32 12/10/2017 10:02:37 Cervical intraepithelial neoplasia grade 2 431328487 N87.1 Patient with JUANCARLOS 2 on LEEP specimen. Here for repeat pap and ECC since margins were positive at time of LEEP If abnormal, may need repeat colposcopy . All questions answered and patient verbalized understand ing. [id number] Jose Cruz Mantilla MD [facility] [address] [place] [address] 01/04/2018 11:24:44 01/04/2018 12:02:19 Dysplasia of cervix 99209614 N87.9 Patient doing well postop. Explained positive margins on LEEP specimen posteriorl y where cervix is flush with vagina. Repeat PAP with ECC showed LSIL. Colpo done today. Normal colposcopy . ECC done. Already scheduled for repeat pap in June. Pending results, will do repeat pap smear then. Precaution s discussed. All questions answered and patient verbalized understand ing. [id number] Jose Cruz Mantilla MD [facility] [address] [place] [phone] 06/15/2018 09:08:28 06/15/2018 11:24:54 Abnormal cervical Papanicolaou smear 153786100 R87.612 Patient with h/o Juancarlos 2 s/p LEEP. Colpo in 12/2017 benign. Repeat pap done today. All questions answered and patient verbalized understand ing. [id number] Jose Cruz Mantilla MD [facility] [address] [place] [address] 12/24/2018 08:52:16 12/24/2018 14:23:04 Specialized medical examination 14434291 Z01.419 Reinforced healthy diet, lifestyle, and exercise Patient reminded to report postmenopa usal bleeding Patient counseled regarding self breast exams Patient counseled regarding osteoporos is prevention Patient counseled regarding need for screening colonoscop y and recommende d pt contact PCP regarding referral for colonoscop y. Patient counseled regarding Sexual health Screening mammography 24 973045 Z12.31 Screening for malignant neoplasm of cervix 390246284 Z12.4 Venereal d isease screening 396166882 Z11.3 Lesion of scalp 55992491 91 00 L98.9 Patient desires removal. Will refer to general surgery. // LGI [id number] Marko Dent MD [facility] [address] [facility] [place] [address] 01/04/2019 09:07:04 01/04/2019 09:27:48 Pilar cyst of scalp 311580949 L72.11 Rather prominent symptomati c pilar cyst of the left scalp. We have scheduled the patient for an excision of this in the local room on 01/19/19 at [facility]. 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 I would not recommend removal of these unless there is significan t enlargemen t. [id number] Jose Cruz Mantilla MD [facility] [address] [place] [address], [address] [place] [address] 04/20/2020 13:29:34 04/20/2020 15:31:10 Specialized medical examination 99482010 Z01.419 Reinforced healthy diet, lifestyle, and exercise Patient reminded to report postmenopa usal bleeding Patient counseled regarding self breast exams Patient counseled regarding osteoporos is prevention Patient counseled regarding need for screening colonoscop y and recommende d pt contact PCP regarding referral for colonoscop y. Patient counseled regarding Sexual health Screening mammography 24 647978 Z12.31 Screening for malignant neoplasm of cervix 737912825 Z12.4 [id number] Britni Hwang MD [facility] [address] [place] [address] 09/16/2022 12:16:06 09/16/2022 13:57:37 Viral upper respiratory tract infection 763722622 J06.9 H & P consistent with Upper Respirator y Illness with Coryza sx. No fever, chills, headache, purulent nasal discharge No respirator y difficulty , wheezing or SOB Supportive tx Increase fluids, OTC Sudafed for 5 days or less, may use netti pot or saline nasal spray Drink plenty of fluids. Fluids may help soothe an irritated throat. Hot fluids, such as tea or soup, may help decrease throat pain. This is her fourth visit in one week.Discu ssed that bronchitis is not treated with antibiotic s.However treatment may prevent an unnecessar y ER visit.Doxy cycline Rx which may not clear cough due to URI and viral illness.Re vangie had several steroid treatments for back pain and hives.Disc ussed worsening sx. Please consult your PCP office promptly if you develop any of the following symptoms: A fever of at least 101??F or 38.4??C Cough that is severe or does not start to improve within 5 to 7 days Call for an ambulance or go to the emergency room if you: Have trouble breathing Experienci ng worsening chest pain Have swelling of the neck or tongue [id number] Britni Hwang MD [facility] [address] [address] 01/04/2024 15:30:35 01/04/2024 18:30:08 Low back pain 855178834 M54.50 H & P suggestive of Back strain/spr ain. Able to continue to function. For comfort used ice on his low back. X-ray {{is not* is}} indicated today. Muscle spasms {{yes* no} }. Discussed oral analgesia, ibuprofen and acetaminop hen. And topical preparatio ns: capsaicn, icy hot, lidocaine. May use heat or ice whichever is more comfortabl e. Encouraged exercises for strengthen ing back. Discussed posture for walking, standing and sitting. P t to follow up with PCP in 5 to 10 days if sx do not improve. Call 911anytime you think you may need emergency care. For example, call if: You are unable to move a leg at all. Call your doctor nowor seek immediate medical care if: You have new or worse symptoms in your legs or buttocks. Symptoms may include: Numbness or tingling. Weakness. Pain. You lose bladder or bowel control. Watch closely for changes in your health, and be sure to contact your doctor if: You are not getting better as expected. [id number] Britni Hwang MD [facility] [address] [address] 05/11/2024 13:19:25 05/11/2024 14:44:44 Cough 73769801 R05.9 neg for flu, will check for covid. Explained mainstay of treatment is supportive management at this point. Recommend increasing hydration, rest, Tylenol/Mo kee PRN. Pt to remain out of work/schoo l until fever free for 24 hrs. Pt to f/u if new symptoms develop or any worsening of current symptoms. Advised handwashin g, refraining from close bodily contact, not sharing dishes or silverware , rest, push fluids, and monitor her symptoms for resolution . Advised to f/u with PCP in the next 3-5 days. Reviewed supportive measures: Flonase, nasal saline rinse, salt water gargles, good oral hygiene, cough drops, pineapple, and honey. Lightheadedness 25916964 8 R42 workup as below. see vertigo. Vertigo 247393598 R42 Differenti al includes viral syndrome (such as flu, covid), vestibular neuritis, sinusitis, BPPV. Suspect viral syndrome. She is to monitor symptoms closely for resolution and should follow-up with PCP if symptoms not resolving over the next week, sooner if worsening. Discussed indication s for ER. Patient states understand s and agrees with plan of care. see cough. [id number] Anthony Covington MD [facility] [address] [place] [address] [place] [address] 08/02/2024 13:45:49 08/02/2024 15:14:24 Chronic pain 94640537 G89.29 in back w/ flare that started this year.still w/ painfollow up w/ spine centercont w/ HEP Impaired g lucose tolerance 0676467 R73.02 w/ prior labscheck labs Dizziness [id number] R42 intermitte ntuncertai n causecont w/ adequate hydrationh x of near syncope so will r/o cardiac origin Near syncope [id number] R 55 ekg w/ some IVCD-refer to cardiology [id number] Anthony Covington MD [facility] [address] [place] [address] [place] [address] 09/01/2024 10:28:09 09/01/2024 11:42:14 Near syncope [id number] R55 ekg w/ some IVCD-await ing echo and cardiology consult Dizziness [id number] R42 intermitte ntnew room spinning dizziness suggestive [...] by Organization Details LastModified Time None Recorded Advance Directives Directive None Recorded Payers Encounter Date Sequence Insurance Name Policy Number Policy Jasmine Covered Member ID Jasmine Member ID Guarantor Name 09/16/2022 1 [place]: [facility] Glenna Clark [id number] Glenna Clark 01/04/2024 1 [facility] (HMO) Glenna Clark [id number] Glenna Clark 05/11/2024 1 [facility] Gl[facility] Clark [id number] Glenna Clark 08/02/2024 1 [facility] (HMO) Glenna Clark [id number] Glenna Clark 09/01/2024 1 [facility] Glenna Clark [id number] Glenna Clark Notes Date Note Type Note Provider Name and Address Organization Details Recorded Time 09/16/2022 text/html 62yo female jaylen ent presents to [facility] with cc of bronchitis. Pt reports testing neg for flu and covid five days ago at PCP office. Symptoms started five days ago. -VGWithin a week has had 2 ER visits and saw her PCP 5 days ago. No pulmonary diseaases./pjk Britni Hwang MD [address] [place] [address], [id number], [facility] 09/17/2022 07:52:24 01/04/2024 text/html 63 yr old female presents today with back pain. Pt states she has bulging discs. Pt has been seen for this reason with a spine doctor. Pt works for [employer] and may have triggered the pain while working. Pt called out of work on Thursday and today. 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 I have added a work note to the chart, and sent an email to Alicanto for pt to be cleared to return to work. DMB Britni Hwang MD [address] [place], [address], [facility] 01/05/2024 05:35:15 05/11/2024 text/html [id number] presents w ith headache/dizziness. Pt states that this has been a few weeks, pts reports today headache, ringing ears and feels dizzy. Pt states she has seen her pcp who told her to drink for fluids to not get dehydrated. locates ANDRE over the top of her head and towards the left side, also accompanied by photophobia, and phonophobia. has also had intermittent vertigo, today was significantly worse. also c/o tinnitus bilat ears. also c/o nausea. no fevers. rates ANDRE at 4-5/10. also c/o malaise (for the last 2 weeks). Britni Hwang MD [address] [place], [address], [facility] 05/19/2024 22:55:02 08/02/2024 text/html Pt presents as NPOV for establishing care.Reports she got hurt earlier this year and is in the middle of a disability claim. Seeing a renal medicine specialist for years and is following w/ them for this new injury at work after changing jobs that required lots of bending.Followed by [facility].She is also followed by chiropractor.Had an injection that didn't workMRI 07/23-She just started w/ [employer] disability and the insurance is suggesting she apply for SSDI which she has done.gets SI joint pain if she walks too far and pain gets worse if she sits too long.ANAIS didn't helpCHlorzoxazone - takes only PRN They have referred her to spine surgeon.Tried to go back to work but w/ limitations- but work didn't like that and sent her home. She is looking to get a different position. This summer was having issues w/ dizziness- dtr has Chiari I malformation and POTTSpt had symptoms of nausea when standing about a month ago. [place] like she was going to faint. Needed help to get next door.Remote hx of syncope and once started to pass out while standing at a concert. Anthony Covington MD [address] [place], [address], [facility] 08/04/2024 15:03:18 09/01/2024 text/html [facility] 1 [facility]. [...] echo and cardiology appt in [place]. Anthony Covington MD [address] [place], [address], [facility] 09/05/2024 09:47:36 OBGyn Episode No OBEpisode recorded.
--- OUTSIDE RECORDS SUMMARY | 2024-09-23 13:46 | XMS_ITS | Continuity of Care Document ---
Author Organization [facility] Address [address] [place] [address] [place] [address] Care Team Providers Care Painter Helper Name Role Phone ANTHONY COVINGTON Primary Care [...] Not available Not available Not available Lab HLA-B27, qual [address] [facility] (Outpatient Registration) , [address] [place], [address], 08/10/2024 14:09:30 CMP, serum or plasma [address] [facility] (Outpatient Registration) , [address] [place], [address], 08/02/2024 16:05:11 HbA1c (hemoglob in A1c), blood [address] [facility] (Outpatient Registration) , [address] [place], [address], 08/02/2024 19:25:13 CBC w/ auto diff [address] [facility] (Outpatient Registration) , [address] [facility] [place], [address], 08/02/2024 15:38:42 Referral cardiolog ist referral - several events over the years of near syncope. Dtr has OWEN. Most recent was a month ago- 2023 024 Dean Morales MD, [address] [place], [address], 09/23/2024 09:41:33 Procedures None recorded. Surgeries None recorded. Imaging electroca rdiogram 2023 024 [facility], [address], [facility] [address], [place], [address], 08/02/2024 15:17:48 US, echocardi ogram, transthor acic, complete, w/ color flow - near syncope, ekg w/ IVCD and suggestiv e for LAE 2023 024 [facility]), [address] [place], [address], 09/22/2024 14:46:22 Medication Orders None recorded. Patient TargetsNo targets recorded. Patient InstructionsNo instructions recorded. Reason for Referral News[employer] Vendor Referral for Ne ar syncope several events over the years of near syncope. Dtr has OWEN. Most recent was a month ago- Referring Physician: Karen Thurston, Internal Medicine, Encounter Date: 08/02/2024 Results Created Date Observation Date Name Description Value Unit Range Abnormal Flag Note LastModifiedBy Organization Detail LastModifiedTime 08/02/20 24 08/02/2024 elect rocar diogr am No observ ation record ed. [email or web address] [facility] [address] [facility] [address], [place], [address], 08/02/2024 15:17:48 08/02/20 elect rocar diogr am No observ ation record ed. [email or web address] [facility] [address] [facility] [address], [place], [address], 08/09/2024 08:32:31 Result Notes None recorded. Problems Name Problem SNOMED Code Status Onset Date Resolution Date Notes Provider Name and Address Organization Details Recorded Time Ureteric stone 60230529 Completed 12/26/2019 Karen Howard RN null, [facility] 0 11:01:21 Urinary tract infectious disease 72248989 Completed 12/26/2019 Karen Howard RN null, [facility] 0 11:01:15 Depressive disorder 57579503 Active 2021 Maura Narayan LPN null, [facility] 2 16:14:13 Chronic pain 93585646 Active 2021 CHINO Barillas, [facility] 2 16:14:20 Problem Notes None recorded. Procedures Surgical History Date Name Laterality Status Provider Name and Address Organization Details Recorded Time 06/30/20 19 Date of Last Mammogram completed Kathrin sutherland MA [facility] 04/20/2020 13:37:58 01/20/20 19 excision of cyst completed Mary Hinds [facility] 02/08/2019 09:35:35 12/25/19 19 Date of Last Pap Smear completed Kathrin sutherland MA [facility] 04/20/2020 13:38:16 01/05/20 18 Colposcopy completed Jose Cruz Mantilla MD [facility] 01/04/2018 13:55:31 06/02/20 17 Vulvar Biopsy/Excision completed Jose Cruz Mantilla MD [facility] 06/02/2017 14:05:32 05/29/20 17 Paracervical Nerve Block completed Jose Cruz Mantilla MD [facility] 06/01/2017 09:42:52 05/29/20 17 LEEP completed Jose Cruz Mantilla MD [facility] 06/01/2017 09:42:43 04/24/20 17 established patient counseling (25-39 minutes) completed Jose Cruz Mantilla MD [facility] 05/02/2017 10:53:11 04/06/20 17 Colposcopy completed Jose Cruz Mantilla MD [facility] 04/06/2017 15:29:51 05/26/20 16 EXTRA CORPOREAL SHOCKWAVE LITHOTRIPSY (SURG) completed Yudi Quintanilla [facility] 05/28/2016 11:38:37 04/14/20 16 EXTRA CORPOREAL SHOCKWAVE LITHOTRIPSY (SURG) completed Sandra Cancino [facility] 04/16/2016 09:23:04 04/14/20 16 EXTRA CORPOREAL SHOCKWAVE LITHOTRIPSY (SURG) completed Annelise Ordonez [facility] 06/02/2016 11:44:09 04/02/20 16 CYSTOSCOPY (SURG) completed Sandra Cancino [facility] 04/04/2016 11:19:50 Imaging Results Imaging Date Name Status LastModified by Organization Details LastModified Time 08/02/2024 electrocardiogram completed [email or web address] [address], [address], 08/02/2024 15:17:48 Procedure Notes None recorded. Medical Equipment None Reported. Allergies Allergen ID Allergen Name Allergen Category Reaction Reaction Severity Criticality Documentation Date Start Date Code Code System Note Provider Name and Address Organization Details Recorded Time 467504 ampicilli n medicatio n rash Not available Not available 04/01/2016 733 RxNorm Annelise abad [facility] 6 13:51:57 257941 amoxicill in medicatio n nausea Not available Not available 04/01/2016 723 RxNorm Annelise abad [facility] 6 13:52:31 171843 erythromy juancarlos medicatio n Not available Not available Not available 03/23/2017 4053 RxNorm OXANA Cat [facility] 7 14:40:38 Medications Name Sig Start Date [...] Not Available Not Available Not Available cyclobenza crzu 5 mg tablet Take 1 tablet every [...] Updated DateTime 4 165.1 cm 30.6 kg/m2 63074 g 92 /min 96 % 96 % 120 mm[Hg] 90 mm[Hg] Komal Dyson MA [facility] 4 13:56:06 Social History Question Answer Notes LastModified by Organizat ion Details LastModified Time Tobacco Smoking Status Former Smoker Annelise abad MA [facility] 04/01/2016 13:54:06 What Is Your Level Of Alcohol Consumption? 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 12/24/2018 Information n ot available 04/07/2019 Are You Sexually Active? Yes shira Information not available 04/20/2020 Sex: Female Functional [...] SNOMED-CT Code Diagnosis ICD10 Code Diagnosis Note [id number] Anthony Covington MD [facility] [address] [place] [address] [place] [address] 08/02/2024 13:45:49 08/02/2024 15:14:24 Chronic pain 88469030 G89.29 in back w/ flare that started this year.still w/ painfollow up w/ spine centercont w/ HEP Impaired g lucose tolerance 6617382 R73.02 w/ prior labscheck labs Dizziness [id number] R42 intermitte ntuncertai n causecont w/ adequate hydrationh x of near syncope so will r/o cardiac origin Near syncope 073164859 R 55 ekg w/ some IVCD-refer to cardiology Health Concerns Section Related Observation LastModified by Organization Detai ls LastModified Time None Recorded Concern Status LastModified by Organization Details LastModified Time None Recorded Payers Encounter Date Sequence Insurance Name Policy Number Policy Jasmine Covered Member ID Jasmine Member ID Guarantor Name 08/02/2024 1 [facility] ([facility] Glenna Clark [id number] Glenna Clark Notes Date Note Type Note Provider Name and Address Organization Details Recorded Time 08/02/2024 text/html Pt presents as NPOV for establishing care.Reports she got hurt earlier this year and is in the middle of a disability claim. 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 [place] like she was going to faint. Needed help to get next door.Remote hx of syncope and once started to pass out while standing at a concert. Anthony Covington MD [address] [place] [address], [place], [address], [facility] 08/04/2024 15:03:18 OBGyn Episode No OBEpisode recorded.
== END 2024-09-23 14:44 | disposition home or self-care (01) ==
PROVIDERS: Referring Provider Nurse Practitioner Adult Health; Visit Provider Neurological Surgery
DX: M46.1 Sacroiliitis, not elsewhere classified (principal)
CPT/HCPCS: 99204

== ENCOUNTER → 2024-09-23 13:42 | Outpatient (BNVA) | payer MEDICAID, SELFPAY | PROVIDERS: Referring Provider Nurse Practitioner Adult Health; Visit Provider Neurological Surgery ==

== ENCOUNTER 2024-10-24 11:20 | Outpatient (AMB) | payer OTHER, SELFPAY ==
--- NOTE | 2024-10-24 11:21 | MHC.OFFVIS ---
Vital Signs 10/24/24 11:23 Height 5 ft 5 in Weight 184 lb BMI 30.6 BP 134/93 H Blood Pressure Location Lt brachial Position Sitting Respiration 16 Pulse 118 H Pulse Source Pulse Oximeter Pulse Oximetry (%) 96 Oxygen Delivery Method Room Air Intake Visit Reasons: Sacroiliitis Organisational Psychologist Required: No Allergies ampicillin Allergy (Mild, Verified 10/24/24 11:24) Unknown Medication List - Last Reconciled 10/24/24 by Yenifer Collins, CHINO cyclobenzaprine 10 mg PO TID PRN HPI HPI Sacroiliitis: Details: History of Present Illness The patient is a 64-year-old female presenting with chronic low back pain. Over the past year, her pain has persisted and significantly impacted her daily life. The pain remains severe in intensity and fails to improve despite prior interventions, including physical therapy and sacroiliac joint injections. The patient has a history of an initial back injury in 2016 while lifting a heavy printer. Radiological evaluations have disclosed degenerative changes at the L5-S1 level with accompanying sclerosis evident on X-ray assessments. She has tried treatments including medication and various injections without meaningful relief. Pain Description - Onset and Timing: Began approximately one year ago; continuous and unrelenting. - Quality and Character: Described as severe, rated 8 to 10 out of 10 in intensity. - Primary Location: Predominantly right lower back. - Radiation: Occasionally perceived down the left leg. - Exacerbating Factors: Bending, walking, standing for long periods, and cold temperatures. - Relieving Factors: Tick Relief when reclining; minimal relief from past medical interventions. - Interference: Interferes with sleep and daily activities such as movement and work ability. Physical Exam - Musculoskeletal- Noted exquisite tenderness to palpation in the midline area radiating towards the left side; lateral bending towards the left reproduces pain, especially on rising. - Musculoskeletal- Forward flexion is not significantly painful. The Sam test is positive on the left side. Results - Imaging: MRI indicates disc degeneration and vertebral endplate changes at L5-S1, with inconsistencies noted between left and right sides. Pain Management - Affect: Pain significantly impacts mood and psychological wellbeing, causing frustration and limitation in quality of life. - Analgesia: Currently manages pain with cyclobenzaprine as needed; pain persists at 8-10 intensity. - Adverse Effects: Not explicitly discussed. - Activities of Daily Living: Unable to sleep properly or perform regular daily tasks and activities due to pain. - Aberrant Drug Related Behaviors: No reported evidence of medication misuse. Physical Exam Vital Signs: Last Vital Signs Pulse 118 H 10/24/24 11:23 Resp 16 10/24/24 11:23 BP 134/93 H 10/24/24 11:23 Pulse Ox 96 10/24/24 11:23 Oxygen Delivery Method Room Air 10/24/24 11:23 BMI result Body Mass Index 30.6 Results Reviewed Results Reviewed: Exam: MR Lumbar Spine (C-) CPT 05853 Room Description: Lico Hernandez Espr 1.5 HISTORY: Back pain and left leg pain. COMPARISON: Lumbar spine MRI, 09/04/2022. FINDINGS: ALIGNMENT, VERTEBRAE, MARROW, AND DISCS: There is a subtle levoscoliosis of the lower lumbar spine as well as trace anterolisthesis of L4 and L5. Remaining alignment is normal. Vertebral body heights are preserved. There is disc desiccation from L2-S1 with mild disc space narrowing at L5-S1, where Modic type I endplate changes are also seen. Bone marrow signal is mildly heterogeneous, though otherwise within normal limits. CONUS: The visualized lower thoracic cord is normal in caliber and signal. The conus terminates at L1-2. PARASPINAL TISSUES: Retroperitoneal and posterior paraspinal soft tissues are unremarkable. DETAILED FINDINGS BY LEVEL: L1-L2: There is no significant canal or neural foraminal stenosis. L2-L3: There is very minimal disc bulging and facet spurring without canal stenosis. Mild right neural foraminal stenosis noted. L3-L4: There is minimal disc bulging as well as posterior ligamentous thickening and facet spurring, though there is no significant canal stenosis. Mild bilateral neural foraminal stenosis noted. L4-L5: There is diffuse disc bulging as well as posterior ligamentous thickening and facet spurring, right greater than left. However, there is no significant canal stenosis. Mild right and minimal left neural foraminal stenosis noted. L5-S1: There is diffuse disc osteophyte with superimposed small central protrusion as well as bilateral facet spurring. However, there is no significant canal stenosis. Marginal osteophyte contributes to minimal right and mild to moderate left neural foraminal stenosis. IMPRESSION: 1. Mild multilevel degenerative changes are similar to prior. There is no high-grade canal stenosis or convincing nerve root compression. Assessment & Plan Assessment & Plan (1) Vertebrogenic low back pain: Code(s): M54.51 - Vertebrogenic low back pain Category: Medical Plan Plan Considering her diagnosis of degenerative disc disease at L5-S1, I proposed basivertebral nerve ablation procedure to manage her persistent vertebrogenic low back pain. The patient will also benefit from conservative measures such as swimming and core strengthening to minimize progression and support spine health, with the aim for nerve ablation focused on alleviating discomfort. Approval for the vertebral nerve ablation will be requested from her insurance before proceeding. Patient was informed and verbally consented to the use of an ambient scribe for clinic note documentation during this visit. Discussion Notes I explained to the patient that her chronic back pain is primarily due to L5-S1 disc degeneration with vertebral endplate changes. After reviewing various non-conclusive past interventions, including SI joint injections, I detailed a procedure known as basivertebral nerve ablation that could offer significant pain relief by targeting specific nerves. The procedure's success rate is approximately 80% in my experience, with the potential to alleviate her chronic discomfort significantly. I discussed risks and benefits thoroughly, ensuring informed consent, and provided brochures outlining the procedure specifics. I also emphasized the importance of conservative management, such as swimming and core strengthening exercises, to support long-term spinal health. She understands that surgery is not recommended and is amenable to the proposed pain management strategy. Patient Instructions - Continue taking prescribed medications as directed. - Consider engaging in swimming and core-strengthening exercises to support spinal health. - Refrain from activities that exacerbate pain such as frequent bending, pulling, and pushing. - Be attentive to insurance authorization for the proposed vertebral nerve ablation. - Follow up as advised once approval is obtained for scheduling the recommended procedure. - Seek immediate medical attention if pain significantly worsens or new symptoms arise. Coding Level of Care Code New Pt Level 4 (37482) Diagnoses Vertebrogenic low back pain M54.51
[2024-10-24 11:23] VITALS: BP 134/93; PULSE 118; RESP 16; O2SAT 96; BMI 30.6
== END 2024-10-24 12:30 | disposition home or self-care (01) ==
PROVIDERS: PCP Internal Medicine; Visit Provider Internal Medicine
DX: M54.51 Vertebrogenic low back pain (principal)
CPT/HCPCS: 99204

== ENCOUNTER 2025-01-04 10:28 | Outpatient (AMB) | payer OTHER, SELFPAY ==
--- NOTE | 2025-01-04 10:39 | HO.SPINEOV ---
Intake Visit Reasons: Re follow up visit from 09/23/24 Intake Note: Mrs. Clark is here today to follow up regarding injections she had done. Hr Operations Advisor Required: No Allergies ampicillin Allergy (Mild, Verified 10/24/24 11:24) Unknown Assessment & Plan Assessment & Plan (1) Vertebrogenic low back pain: Code(s): M54.51 - Vertebrogenic low back pain Category: Medical Plan On January 04, 2025, I saw for follow-up Glenna Clark. I refer to pain management for another SI joint injection as I am not convinced that the pain is originating from the SI joint. She saw who agreed and decided not to offer an SI joint injection. Instead he wanted to do burning of the basivertebral nerve at L5-S1 for the diagnosis vertebrogenic pain. I disagree. The MRI shows very mild degenerative changes at L5-S1 and no severe Modic changes. I advised her to undergo chiropractic treatment which is already scheduled. If this does not work, she will return to our pain management team. I spent 20 minutes in his consult reviewing imaging and answering questions. Ishaan Javed MD, PhD Spine Fellowship Trained Neurosurgeon Director, [facility] Coding Level of Care Code Est Pt Level 2 (75833) Diagnoses Vertebrogenic low back pain M54.51
--- OUTSIDE RECORDS SUMMARY | 2025-01-04 12:21 | XMS_ITS | Clinical Summary ---
Author Organization [employer] Address [address] [facility] [address] [place] [address] Care Team Providers Care Jtac Name Role Phone Allen Tracey PA-C Primary Care Provider Dillon Peralta LLTen Unavailable Social History Tobacco Use Types Packs/Day Years Used Date Smoking Tobacco: Never Assessed Comments Unknown Sex and Gender Information Value Date Recorded Sex Assigned at Not on file Legal Sex Female 8:37 PM EST Gender Identity Not on file Sexual Orientation Not on file Plan of Treatment Health Maintenance Due Date Last Done Comments CT Colonography 1961 Colonoscopy 1961 Colorectal Cancer Screening 1961 Depression Screening 1961 FIT DNA/Cologuard 1961 FIT 1961 FOBT 1961 Sigmoidoscopy 1961 Alcohol/Substance Use Screening 1973 Tobacco Screening 1973 DTaP/Tdap/Td Vaccines (1 - Tdap) 01/14/1980 Pap Smear 1982 Cervical Cancer Screening 1991 HPV/Cotest 1991 Mammogram 2001 Pneumococcal Vaccine: 50+ Ye ars (1 of 1 - PCV) 2011 Zoster Vaccines (1 of 2) 2011 COVID-19 Vaccine ( - 2023-2 5 season) 2024 Influenza Vaccine (#1) 2024 RSV Patients and Pa tients Aged 60 years or older (1 - 1-dose 75+ series) 01/14/2036 HIB Vaccines Aged Out No longer eligi ble based on patient's age to complete this topic HPV Vaccines Aged Out No longer eligi ble based on patient's age to complete this topic Hepatitis A Vaccines Aged Out No long er eligible based on patient's age to complete this topic Hepatitis B Vaccines Aged Out No long er eligible based on patient's age to complete this topic IPV Vaccines Aged Out No longer eligi ble based on patient's age to complete this topic Meningococcal Vaccine Aged Out No tito virgen eligible based on patient's age to complete this topic Pneumococcal Vaccine: Pediat rics (0 to 5 Years) and At-Risk Patients (6 to 49) Years) Aged Out No longer eligible b ased on patient's age to complete this topic RSV under 20 months Aged Out No longe r eligible based on patient's age to complete this topic Rotavirus Vaccines Aged Out No longer eligible based on patient's age to complete this topic Care Teams Jtac Relationship Specialty Start Date End Date Allen Tracey PA-C [address] [place] [address] PCP - General Family Medicine 01/06/24 Dillon Peralta LLD [address] [place] [address] Dentist 01/22/24
--- OUTSIDE RECORDS SUMMARY | 2025-01-04 12:21 | XMS_ITS | Encounter Summary ---
Author Organization [employer] [facility] Address [address] [facility] [address] [place] [id number] Care Team Providers Care Hair Baler Name Role Phone Dillon Peralta Primary Care Provider [phone] Casey Jerez Primary Care Provider U Allen Dash PA-C Primary Care Provider [phone] Dillon Peralta Unavailable Encounter Details Date Type Department Care Team (Latest Contact Info) Description 01/24/2019 Abstract [facility] Dental, Provider, DDS Social History Tobacco Use Types Packs/Day Years Used Date Smoking Tobacco: Never Assessed Comments Unknown Sex and Gender Information Value Date Recorded Sex Assigned at Not on file Legal Sex Female 8:37 PM EST Gender Identity Not on file Sexual Orientation Not on file documented as of this encounter Plan of Treatment Not on file documented as of this encounter Visit Diagnoses Not on filedocumented in this encounter Care Teams Hair Baler Relationship Specialty Start Date End Date Dillon Peralta LLD [address] [place] [address] PCP - General Dentist 07/11/22 04/27/23 Casey Jerez PCP - General Family Medicine 04/28/23 01/05/24 Allen Tracey PA-C [address] [place] [address] PCP - General Family Medicine 01/06/24 Dillon Peralta LLD [address] [place] [address] Dentist 01/22/24 documented as of this encounter
--- OUTSIDE RECORDS SUMMARY | 2025-01-04 12:21 | XMS_ITS | Encounter Summary ---
Author Organization [employer] [facility] Address [address] [facility] [address] [place] [id number] Care Team Providers Care Com Writer Name Role Phone Dillon Peralta Primary Care Provider [phone] Casey Jerez Primary Care Provider U Allen Dash PA-C Primary Care Provider [phone] Dillon Peralta Unavailable Encounter Details Date Type Department Care Team (Latest Contact Info) Description 07/28/2019 Abstract [facility] Dental, Provider, DDS Social [...] on filedocumented in this encounter Care Teams Com Writer Relationship Specialty Start Date End Date Dillon Peralta LLD [address] [place] [address] PCP - General Dentist 07/11/22 04/27/23 Casey Jerez PCP - General Family Medicine 04/28/23 01/05/24 Allen Tracey PA-C [address] [place] [address] PCP - General Family Medicine 01/06/24 Dillon Peralta LLD [address] [place] [address] Dentist 01/22/24 documented as of this encounter
--- OUTSIDE RECORDS SUMMARY | 2025-01-04 12:22 | XMS_ITS | Data Portability ---
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 She has 2 distinct issues at this time. 1 is vertigo which is positional in nature. I reassured her this is not cardiac but certainly is a huge vjolphh-jy-[id number] issue. I advised her to follow-up with her PCP for further recommendations and/or evaluation. Secondly she has orthostatic/vasova gal type dizziness. Has been going on since has been a teenager so there is nothing that is particularly new or different other than it has been happening a little more recently. She had a recent echocardiogram which was normal and EKG shows sinus rhythm. We talked about some simple lifestyle changes such as increasing her salt and fluid intake. I would recommend that she can try sports drinks such as Gatorade. I also recommended that she can try compression socks which in some patients gives great relief of their orthostatic symptoms. As a medication option she can try fludrocortisone 0.1 mg daily in addition to other lifestyle modifications. At this time I do not see a need for event monitoring or further cardiac testing since she is otherwise asymptomatic. She should follow-up with her PCP for further treatment of her orthostasis and can follow-up in cardiology as needed. -Consider fludrocortisone 0.1 mg p.o. daily -Increase salt and fluid intake, consider compression socks -Follow-up in cardiology as needed [email or web address] Not available 10/10/2024 13:46:48 Plan of Treatment Reminders Order Date Submit Date Provider Last Modified By Organization Details Last Modified Time Details Appointments None recorded. Lab HLA-B27, qual 2023 [facility] (Outpatient Registration) , [address] [place], [address], 4 14:09:30 CMP, serum or plasma 2023 024 [facility] (Outpatient Registration) , [address] [place], [address], 4 16:05:11 HbA1c (hemoglobi n A1c), blood 2023 024 [facility] (Outpatient Registration) , [address] [place], [address], 4 19:25:13 CBC w/ auto diff 2023 024 [facility] (Outpatient Registration) , [address] [place], [address], 4 15:38:42 glucose, fingerstic k, blood 2023 024 scott In-Office Order, Internal Use Only DO Not Attach Compendium DO Not Attach Compendium, Do Not Delete/merge, [id number] 4 15:37:16 CBC w/ auto diff 2023 024 [facility] (Outpatient Registration) , [address] [place], [address], 4 20:23:14 CMP, serum or plasma 2023 024 [facility] (Outpatient Registration) , [address] [place], [address], 4 20:48:35 rapid flu (A+B) 2023 024 scott [facility], [address], [place], [address], 4 15:37:14 SARS CoV 2 RNA (COVID-19) , QL, level vial inspector-PCR, respirator y specimen 2023 024 [facility] (Outpatient Registration) , [address] [facility], [place], [address], 4 10:55:24 Referral spine center referral - pt w/ chronic back pain L5-S1 disc disease and end plate changes. Would like a second opinion 2024 025 [facility], [address] [place] [address], [address], 5 08:01:[address] referral - several events over the years of near syncope. Dtr has OWEN. Most recent was a month ago- 2023 024 [email or web address] Dean Morales MD, [address] [facility], [place], [address], 5 08:30:21 Procedures pulse oximetry (PROC) 2023 024 scott [facility], [address] , [place], [address], 4 15:37:15 Surgeries None recorded. Imaging electrocar diogram 2024 025 [facility], [address], [place], [address], 5 07:55:45 electrocar diogram 2023 024 [facility], [address] [facility], [facility] [address], [place], [address], 4 15:17:48 US, echocardio gram, transthora cic, complete, w/ color flow - near syncope, ekg w/ IVCD and suggestive for LAE 2023 024 [facility] (Central Scheduling), [address] [place], [address], 08:42:03 Medication Orders None recorded. Patient TargetsNo targets recorded. 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 Dtr has LEXIE. Most recent was a month ago- Referring Physician: Karen Thurston, Internal Medicine, Encounter Date: 08/02/2024 [facility] Center Referral for De generation of lumbar intervertebral disc pt w/ chronic back pain L5-S1 disc disease and end plate changes. Would like a second opinion Referring Physician: Karen Thurston, Internal Medicine, Encounter Date: 11/30/2024 Results Created Date Observation Date Name Description Value Unit Range Abnormal Flag Note LastModifiedBy Organization Detail LastModifiedTime 05/11/2005/11/2024 COMPL ETE BLOOD COUNT AUTO DIFF white blood count 12.65 K/uL 3.5-11 .0 high Not Available [facility] [address] [place], [address] 05/11/2024 20:23:14 05/11/20 24 05/11/2024 COMPL ETE BLOOD COUNT AUTO DIFF red blood count 4.68 M/uL 3.60-4 .80 normal Not Available [facility] [address] [place], [address] 05/11/2024 20:23:14 05/11/2005/11/2024 COMPL ETE BLOOD COUNT AUTO DIFF hemoglobin 14.5 g/dL 12.0-1 6.0 normal Not Available [facility] [address] [place], [address] 05/11/2024 20:23:14 05/11/20 24 05/11/2024 COMPL ETE BLOOD COUNT AUTO DIFF hematocrit 41.9 % 36.0-4 8.0 normal Not Available [facility] [address] [place] [address], [id number] 05/11/2024 20:23:14 05/11/20 24 05/11/2024 COMPL ETE BLOOD COUNT AUTO DIFF mean corpuscular volume 89.5 fL 79.0-9 8.0 normal Not Available [facility] [address] [place] [address], [address] 05/11/2024 20:23:14 05/11/20 24 05/11/2024 COMPL ETE BLOOD COUNT AUTO DIFF mean corpuscular hemoglobin 31.0 pg 25.4-3 4.6 normal Not Available [facility] [address] [place] [address], [address] 05/11/2024 20:23:14 05/11/20 24 05/11/2024 COMPL ETE BLOOD COUNT AUTO DIFF mean corpuscular HGB conc 34.6 g/dL 30.0-3 6.0 normal Not Available [facility] [address] [place] [address], [address] 05/11/2024 20:23:14 05/11/20 24 05/11/2024 COMPL ETE BLOOD COUNT AUTO DIFF red cell distribution width 12.7 % 11.5-1 4.5 normal Not Available [facility] [address] [place] [address], [id number] 05/11/2024 20:23:14 05/11/20 24 05/11/2024 COMPL ETE BLOOD COUNT AUTO DIFF platelet count 289 K/uL 150-40 0 normal Not Available [facility] [address] [place] [address], [address] 05/11/2024 20:23:14 05/11/20 24 05/11/2024 COMPL ETE BLOOD COUNT AUTO DIFF neutrophils percent auto 80.0 % 35.0-6 6.0 high Not Available [facility] [address] [place] [address], [address] 05/11/2024 20:23:14 05/11/20 24 05/11/2024 COMPL ETE BLOOD COUNT AUTO DIFF imm gran pct auto 0.4 % 0.0-0. 6 normal Not Available [facility] [address] [place] [address], [address] 05/11/2024 20:23:14 05/11/20 24 05/11/2024 COMPL ETE BLOOD COUNT AUTO DIFF lymphocytes percent auto 13.6 % 25.0-4 5.0 low Not Available [facility] [address] [place] [address], [id number] 05/11/2024 20:23:14 05/11/20 24 05/11/2024 COMPL ETE BLOOD COUNT AUTO DIFF monocytes percent auto 5.6 % 0.0-13 .0 normal Not Available [facility] [address] [place] [address], [address] 05/11/2024 20:23:14 05/11/20 24 05/11/2024 COMPL ETE BLOOD COUNT AUTO DIFF eosinophils percent auto 0.2 % 0.0-8. 0 normal Not Available [facility] [address] [place] [address], [address] 05/11/2024 20:23:14 05/11/20 24 05/11/2024 COMPL ETE BLOOD COUNT AUTO DIFF basophils percent auto 0.2 % 0.0-1. 0 normal Not Available [facility] [address] [place] [address], [id number] 05/11/2024 20:23:14 05/11/20 24 05/11/2024 COMPL ETE BLOOD COUNT AUTO DIFF NRBC pct auto 0.0 /100_ WBC 0.0 normal Not Available [facility] [address] [place], [address] 05/11/2024 20:23:14 05/11/20 24 05/11/2024 COMPL ETE BLOOD COUNT AUTO DIFF neutrophils absolute auto 10.12 K/uL 1.5-7. 5 high Not Available [facility] [address] [place] [address], [id number] 05/11/2024 20:23:14 05/11/20 24 05/11/2024 COMPL ETE BLOOD COUNT AUTO DIFF imm gran abs auto 0.05 K/uL 0.00-0 .09 normal Not Available [facility] [address] [place], [address] 05/11/2024 20:23:14 05/11/20 24 05/11/2024 COMPL ETE BLOOD COUNT AUTO DIFF lymphocytes absolute auto 1.72 K/uL 0.8-4. 8 normal Not Available [facility] [address] [place], [address] 05/11/2024 20:23:14 05/11/20 24 05/11/2024 COMPL ETE BLOOD COUNT AUTO DIFF monocytes absolute auto 0.71 K/uL 0.4-1. 3 normal Not Available [facility] [address] [place], [address] 05/11/2024 20:23:14 05/11/20 24 05/11/2024 COMPL ETE BLOOD COUNT AUTO DIFF eosinophils absolute auto 0.02 K/uL 0.0-0. 8 normal Not Available [facility] [address] [place], [address] 05/11/2024 20:23:14 05/11/20 24 05/11/2024 COMPL ETE BLOOD COUNT AUTO DIFF basophils absolute auto 0.03 K/uL 0.0-0. 6 normal Not Available [facility] [address] [place], [address] 05/11/2024 20:23:14 05/11/20 24 05/11/2024 COMPL ETE BLOOD COUNT AUTO DIFF NRBC abs auto 0.00 K/uL 0.00 normal Not Available [facility] [address] [place], [address] 05/11/2024 20:23:14 05/11/20 24 05/11/2024 COMPR EHENS LUZMA MET. PANEL sodium 144 mmol/ L 136-14 5 normal Not Available [facility] [address] [place], [address] 05/11/2024 20:48:35 05/11/2005/11/2024 COMPR EHENS LUZMA MET. PANEL potassium 3.65 mmol/ L 3.5-5. 1 normal Not Available [facility] [address] [place], [address] 05/11/2024 20:48:35 05/11/2005/11/2024 COMPR EHENS LUZMA MET. PANEL chloride 109 mmol/ L 98-107 high Not Available [facility] [address] [place], [address] 05/11/2024 20:48:35 05/11/20 24 05/11/2024 COMPR EHENS LUZMA MET. PANEL carbon dioxide 21 mmol/ L 22-29 low Not Available [facility] [address] [place], [address] 05/11/2024 20:48:35 05/11/20 24 05/11/2024 COMPR EHENS LUZMA MET. PANEL anion gap 17 mmol/ L 10-20 normal Not Available [facility] [address] [place], [address] 05/11/2024 20:48:35 05/11/20 24 05/11/2024 COMPR EHENS LUZMA MET. PANEL blood urea nitrogen 34 mg/dL 8-23 high Not Available [facility] [address] [place], [address] 05/11/2024 20:48:35 05/11/20 24 05/11/2024 COMPR EHENS LUZMA MET. PANEL creatinine 0.65 mg/dL 0.51-0 .95 normal Not Available [facility] [address] [place], [address] 05/11/2024 20:48:35 05/11/20 24 05/11/2024 COMPR EHENS [...] under the age of 18. Not Available [facility] [address] [place], [address] 05/11/2024 20:48:35 05/11/20 24 05/11/2024 COMPR EHENS LUZMA MET. PANEL glucose 154 mg/dL 82-115 high Not Available [facility] [address] [place], [address] 05/11/2024 20:48:35 05/11/20 24 05/11/2024 COMPR EHENS LUZMA MET. PANEL calcium 9.2 mg/dL 8.8-10 .2 normal Not Available [facility] [address] [place], [address] 05/11/2024 20:48:35 05/11/20 24 05/11/2024 COMPR EHENS LUZMA MET. PANEL bilirubin total 0.5 mg/dL 0.2-1. 2 normal Not Available [facility] [address] [place], [address] 05/11/2024 20:48:35 05/11/20 24 05/11/2024 COMPR EHENS LUZMA MET. PANEL aspartate amino transferase 14 U/L 5-32 normal Not Available [facility] [address] [place], [address] 05/11/2024 20:48:35 05/11/20 24 05/11/2024 COMPR EHENS LUZMA MET. PANEL alanine aminotransfe rase 10 U/L 5-33 normal Not Available [facility] [address] [place], [address] 05/11/2024 20:48:35 05/11/20 24 05/11/2024 COMPR EHENS LUZMA MET. PANEL total protein 6.8 g/dL 6.4-8. 3 normal Not Available [facility] [address] [place], [address] 05/11/2024 20:48:35 05/11/20 24 05/11/2024 COMPR EHENS LUZMA MET. PANEL albumin level 4.2 g/dL 3.5-5. 2 normal Not Available [facility] [address] [place] [address], [address] 05/11/2024 20:48:35 05/11/20 24 05/11/2024 COMPR EHENS LUZMA MET. PANEL globulin 2.6 gm/dL 2.0-3. 5 normal Not Available [facility] [address] [place], [address] 05/11/2024 20:48:35 05/11/20 24 05/11/2024 COMPR ENS LUZMA MET. PANEL albumin globulin ratio 1.7 % 1.1-2. 5 normal Not Available [facility] [address] [place], [address] 05/11/2024 20:48:35 05/11/20 24 05/11/2024 COMPR EHENS LUZMA MET. PANEL alkaline phosphatase 82 U/L 35-104 normal Not Available [facility] [address] [place], [address] 05/11/2024 20:48:35 05/11/20 24 05/12/2024 SARS- COV-2 [...] and purif ied from nasop haryn geal (FABRIC MACHINE OPERATOR), nasal , mid-t urbin ate, and oroph [...] Autho rizat ion (EUA) . Not Available [facility] [address] [place], [address] 05/12/2024 10:55:24 05/11/20 24 05/11/2024 rapid flu (A+B) Flu Type A negati ve Not Available [address] [place], [address], 05/11/2024 13:57:41 05/11/20 24 05/11/2024 rapid flu (A+B) Flu Type B negati ve Not Available [address] [place], [address], 05/11/2024 13:57:41 05/11/20 24 05/11/2024 rapid flu (A+B) Internal Control Valid Not Available [address] [facility] [place], [address], 05/11/2024 13:57:41 05/11/20 24 05/11/2024 rapid flu (A+B) Lot # [id number] Not Available [address] [place], [address], 05/11/2024 13:57:41 05/11/20 24 05/11/2024 rapid flu (A+B) Exp. Date 5 Not Available [address] [place], [address], 05/11/2024 13:57:41 05/11/20 24 05/11/2024 pulse oxime try (PROC ) Unknown Analyte 103 Not Available [facility] [address] [place], [address], 05/11/2024 13:57:42 05/11/20 24 05/11/2024 pulse oxime try (PROC ) Unknown Analyte 97 Not Available [facility] [address] [place], [address], 05/11/2024 13:57:42 05/11/20 24 05/11/2024 gluco se, finge rstic k, blood Glucose Result- Ref Range (70 - 106 mg/dl) 171 Not Available In-Of fice Order Internal Use Only DO Not Attach Compendium DO Not Attach Compendium, Do Not Delete/merge, [id number] 05/11/2024 13:58:21 05/11/20 24 05/11/2024 gluco se, finge rstic k, blood Lot # [id number] Not Available In-Office Order Internal Use Only DO Not Attach Compendium DO Not Attach Compendium, Do Not Delete/merge, [id number] 05/11/2024 13:58:21 05/11/20 24 05/11/2024 gluco se, finge rstic k, blood Exp Date 5 Not Available In-Office Order Internal Use Only DO Not Attach Compendium DO Not Attach Compendium, Do Not Delete/merge, [id number] 05/11/2024 13:58:21 08/02/20 24 08/02/2024 COMPL ETE BLOOD COUNT AUTO DIFF white blood count 10.42 K/uL 3.5-11 .0 normal Not Available [facility] [address] [place], [address] 08/02/2024 15:38:42 08/02/20 24 08/02/2024 COMPL ETE BLOOD COUNT AUTO DIFF red blood count 4.83 M/uL 3.60-4 .80 high Not Available [facility] [address] [place], [address] 08/02/2024 15:38:42 08/02/20 24 08/02/2024 COMPL ETE BLOOD COUNT AUTO DIFF hemoglobin 14.5 g/dL 12.0-1 6.0 normal Not Available [facility] [address] [place] [address], [address] 08/02/2024 15:38:42 08/02/20 24 08/02/2024 COMPL ETE BLOOD COUNT AUTO DIFF hematocrit 44.7 % 36.0-4 8.0 normal Not Available [facility] [address] [place] [address], [address] 08/02/2024 15:38:42 08/02/2008/02/2024 COMPL ETE BLOOD COUNT AUTO DIFF mean corpuscular volume 92.5 fL 79.0-9 8.0 normal Not Available [facility] [address] [place] [address], [address] 08/02/2024 15:38:42 08/02/20 24 08/02/2024 COMPL ETE BLOOD COUNT AUTO DIFF mean corpuscular hemoglobin 30.0 pg 25.4-3 4.6 normal Not Available [facility] [address] [place] [address], [address] 08/02/2024 15:38:42 08/02/20 24 08/02/2024 COMPL ETE BLOOD COUNT AUTO DIFF mean corpuscular HGB conc 32.4 g/dL 30.0-3 6.0 normal Not Available [facility] [address] [place] [address], [address] 08/02/2024 15:38:42 08/02/20 24 08/02/2024 COMPL ETE BLOOD COUNT AUTO DIFF red cell distribution width 13.6 % 11.5-1 4.5 normal Not Available [facility] [address] [place] [address], [address] 08/02/2024 15:38:42 08/02/20 24 08/02/2024 COMPL ETE BLOOD COUNT AUTO DIFF platelet count 309 K/uL 150-40 0 normal Not Available [facility] [address] [place] [address], [address] 08/02/2024 15:38:42 08/02/20 24 08/02/2024 COMPL ETE BLOOD COUNT AUTO DIFF neutrophils percent auto 63.2 % 35.0-6 6.0 normal Not Available [facility] [address] [place] [address], [address] 08/02/2024 15:38:42 08/02/20 24 08/02/2024 COMPL ETE BLOOD COUNT AUTO DIFF lymphocytes percent auto 29.1 % 25.0-4 5.0 normal Not Available [facility] [address] [place] [address], [address] 08/02/2024 15:38:42 08/02/20 24 08/02/2024 COMPL ETE BLOOD COUNT AUTO DIFF monocytes percent auto 6.7 % 0.0-13 .0 normal Not Available [facility] [address] [place] [address], [address] 08/02/2024 15:38:42 08/02/20 24 08/02/2024 COMPL ETE BLOOD COUNT AUTO DIFF eosinophils percent auto 0.8 % 0.0-8. 0 normal Not Available [facility] [address] [place] [address], [address] 08/02/2024 15:38:42 08/02/20 24 08/02/2024 COMPL ETE BLOOD COUNT AUTO DIFF basophils percent auto 0.2 % 0.0-1. 0 normal Not Available [facility] [address] [place] [address], [address] 08/02/2024 15:38:42 08/02/20 24 08/02/2024 COMPL ETE BLOOD COUNT AUTO DIFF neutrophils absolute auto 6.59 K/uL 1.5-7. 5 normal Not Available [facility] [address] [place] [address], [id number] 08/02/2024 15:38:42 08/02/20 24 08/02/2024 COMPL ETE BLOOD COUNT AUTO DIFF lymphocytes absolute auto 3.03 K/uL 0.8-4. 8 normal Not Available [facility] [address] [place] [address], [address] 08/02/2024 15:38:42 08/02/20 24 08/02/2024 COMPL ETE BLOOD COUNT AUTO DIFF monocytes absolute auto 0.70 K/uL 0.4-1. 3 normal Not Available [facility] [address] [place], [address] 08/02/2024 15:38:42 08/02/20 24 08/02/2024 COMPL ETE BLOOD COUNT AUTO DIFF eosinophils absolute auto 0.08 K/uL 0.0-0. 8 normal Not Available [facility] [address] [place], [address] 08/02/2024 15:38:42 08/02/20 24 08/02/2024 COMPL ETE BLOOD COUNT AUTO DIFF basophils absolute auto 0.02 K/uL 0.0-0. 6 normal Not Available [facility] [address] [place], [address] 08/02/2024 15:38:42 08/02/20 24 08/02/2024 COMPR EHENS LUZMA MET. PANEL sodium 139 mmol/ L 136-14 5 normal Not Available [facility] [address] [place] [address], [address] 08/02/2024 16:05:11 08/02/20 24 08/02/2024 COMPR EHENS LUZMA MET. PANEL potassium 3.9 mmol/ L 3.5-5. 1 normal Not Available [facility] [address] [place] [address], [address] 08/02/2024 16:05:11 08/02/20 24 08/02/2024 COMPR EHENS LUZMA MET. PANEL chloride 101 mmol/ L 98-107 normal Not Available [facility] [address] [place] [address], [address] 08/02/2024 16:05:11 08/02/20 24 08/02/2024 COMPR EHENS LUZMA MET. PANEL carbon dioxide 27.5 mmol/ L 22-29 normal Not Available [facility] [address] [place] [address], [address] 08/02/2024 16:05:11 08/02/20 24 08/02/2024 COMPR EHENS LUZMA MET. PANEL anion gap 15 mmol/ L 10-20 normal Not Available [facility] [address] [place] [address], [address] 08/02/2024 16:05:11 08/02/20 24 08/02/2024 COMPR EHENS LUZMA MET. PANEL blood urea nitrogen 27 mg/dL 8-23 high Not Available [facility] [address] [place], [address] 08/02/2024 16:05:11 08/02/20 24 08/02/2024 COMPR EHENS LUZMA MET. PANEL creatinine 0.79 mg/dL 0.50-0 .90 normal Not Available [facility] [address] [place], [address] 08/02/2024 16:05:11 08/02/20 24 08/02/2024 COMPR EHENS [...] 30 mg/g or other marke rs of bryan ruanoag e Kidne y failu re is less than 15 mL/mi n/1.7 3 squar e meter s This test is not perfo rmed in patie nts under the age of 18. Not Available [facility] [address] [place] [address], [id number] 08/02/2024 16:05:11 08/02/20 24 08/02/2024 COMPR EHENS LUZMA MET. PANEL glucose 101 mg/dL 82-115 normal Not Available [facility] [address] [place] [address], [address] 08/02/2024 16:05:11 08/02/20 24 08/02/2024 COMPR EHENS LUZMA MET. PANEL calcium 9.8 mg/dL 8.8-10 .2 normal Not Available [facility] [address] [place], [address] 08/02/2024 16:05:11 08/02/20 24 08/02/2024 COMPR EHENS LUZMA MET. PANEL bilirubin total 0.5 mg/dL 0.2-1. 2 normal Not Available [facility] [address] [place], [address] 08/02/2024 16:05:11 08/02/20 24 08/02/2024 COMPR EHENS LUZMA MET. PANEL aspartate amino transferase 18 U/L 5-32 normal Not Available [facility] Department [address] [place] [address], [address] 08/02/2024 16:05:11 08/02/20 24 08/02/2024 COMPR EHENS LUZMA MET. PANEL alanine aminotransfe rase < 5 U/L 5-33 low Not Available [facility] Department [address] [place] [address], [id number] 08/02/2024 16:05:11 08/02/20 24 08/02/2024 COMPR EHENS LUZMA MET. PANEL total protein 7.6 g/dL 6.4-8. 3 normal Not Available [facility] [address] [place] [address], [id number] 08/02/2024 16:05:11 08/02/20 24 08/02/2024 COMPR EHENS LUZMA MET. PANEL albumin level 4.5 g/dL 3.5-5. 2 normal Not Available [facility] [address] [place] [address], 875[address] 08/02/2024 16:05:11 08/02/20 24 08/02/2024 COMPR EHENS LUZMA MET. PANEL globulin 3.1 gm/dL 2.0-3. 5 normal Not Available [facility] [address] [place] [address], 138[address] 08/02/2024 16:05:11 08/02/20 24 08/02/2024 COMPR EHENS LUZMA MET. PANEL albumin globulin ratio 1.5 % 1.1-2. 5 normal Not Available [facility] [address] [place] [address], 601[address] 08/02/2024 16:05:11 08/02/20 24 08/02/2024 COMPR EHENS LUZMA MET. PANEL alkaline phosphatase 92 U/L 35-104 normal Not Available [facility] Laboratory Department [address] [place] [address], [address] 08/02/2024 16:05:11 08/02/20 24 08/02/2024 HEMOG LOBIN [...] Consi stent with Diabe balbir Not Available [facility] Department [address] [place], [address] 08/02/2024 19:25:13 08/02/20 24 08/10/2024 HLA-B 27 hla-B27 NEGATI VE . HLA-B *27 Negat luzma B27 allel e inter preta tion for all loci based on IMGT/ HLA datab ase versi on This test was devel oped and its perfo rmanc e blake cteri stics deter mined by Christine giordano. It has not been clear ed or appro nickie by the Food and Drug Admin istra tion. [facility] Lab CLIA ID Dilip segura [id number] This test was perfo rmed using Polym erase Chain React ion (PCR) and Seque nce Speci fic Oligo nucle otide Probe s (SSOP ) techn ique. Seque nce Based Typin g (SBT) may be used as a suppl ement al pita daniel when necmagalie yao. If you have quest ions, pleas e call HLA custo sohail servi ce at [phone] or email at HLA @[facility] [email or web address] om. Perfo rmed at: 01 - [facility] [address] [facility] , [place] [address] Lab Direc tor: Fely phillips PhD, Phone : [phone] Not Available [facility] Department [address] [place], [address] 08/10/2024 14:09:30 08/02/20 24 08/02/2024 elect rocgaby diogr am No observ ation record ed. [email or web address] [facility] [address], [place], [address], 08/02/2024 15:17:48 08/02/20 24 elect rocar diogr am No observ ation record ed. [email or web address] [facility] [address] [facility] [address], [place], [address], 08/09/2024 08:32:31 10/06/1910/04/2024 US, echoc ardio gram, trans thora cic, compl ete, w/ color flow [facility] [address] [place] [address] Cardio logy Report Signed Patien t: Glenna Clark MR#: [id number] : 1959 Acct:A [id number] Age/Se x: 64 / F ADM Date: Loc: HE.TAO RD Attend ing Dr: Martina Thurston FABRIC MACHINE OPERATOR Montrell rosado Physic maxine: Martina Thurston FABRIC MACHINE OPERATOR Date of Servic e: Proced ure(s) : CA echo dopple r comple te Access ion Number (s): cc: Gadiel Covington MD [id number] HE.BRO OKA1 ECHDOP CA echo dopple r comple te [facility] [address] [place] [address] Phone: [phone] ECHOCA RDIOGR AM REPORT Name: Glenna Clark Study Date: 2024 09:13 AM 4083 Patien t Locati on: HE.TAO RD : 1959 Age: 64 yrs BP: 130/85 mmHg Gender : Female Orderi ng Physic maxine: Martina Thurston [id number] Perfor med By: Pawan daniel Proced ure: ECHDOP CA echo dopple r comple te Reason For Study: SYNCOP E Interp retati on Summar y The left ventri kareen is normal in size. Left ventri cular systol ic functi on is normal . The right ventri kareen is normal in size and functi on. No signif icant valvul ar abnorm alitie s. No recent for compar yue. Left Ventri kareen The left ventri kareen is normal in size. There is normal left ventri cular wall thickn ess. Left ventri cular systol ic functi on is normal . The ejecti on fracti on is 65%. The left ventri cular wall motion is normal . Right Ventri kareen The right ventri kareen is normal in size and functi on. Atria The left atrial size is normal . The indexe d left atrial volume is 18 cm3. Right atrial size is normal . Mitral Valve The mitral valve is grossl y normal . There is no mitral valve stenos is. There is no mitral regurg itatio n noted. Tricus pid Valve The tricus pid valve is not well visual ized, but is grossl y normal . There is no tricus pid stenos is. No tricus pid regurg itatio n. Aortic Valve The aortic valve opens well. The aortic valve is grossl y normal , but can not evalua te leafle t number . There is no aortic stenos is. No aortic regurg itatio n is presen t. Pulmon ic Valve The pulmon ic valve is not well visual ized. There is no pulmon ic valvul ar stenos is. There is no pulmon ic valvul ar regurg itatio n. Great Vessel s The aortic root is normal size. The ascend ing aortic size is normal . Perica rdium/ Pleura l There is no perica rdial effusi on. There is no pleura l effusi on. Diasto lic Functi on There is eviden ce of mild grade 1 diasto lic dysfun ction. Pulmon praveena Artery Pressu re Pulmon praveena artery pressu re could not be estima aimee, but there are no signs of pulmon praveena hypert ension . The IVC is normal . Proced ure Inform ation A comple te transt horaci c echoca rdiogr am was perfor med, includ ing 2D, M-mode , Dopple r and color flow. The image qualit y is fair. MMode/ 2D Measur ements Calcul ations IVSd: 1.0 cm LVIDd: 4.2 cm LVIDs: 2.7 cm LVPWd: 0.90 cm ___ Ao root diam: 3.4 cm asc Aorta Diam: 3.1 cm LA dimens ion: 2.5 cm Ao mean P.6 mmHg Ao max P.1 mmHg ___ LVOT diam: 2.1 cm LVOT area: 3.6 cm2 Dopple r Measur ements Calcul ations MV E max forest: 56.8 cm/sec MV dec time: 0.15 sec MV A max forest: 71.6 cm/sec MV E/A: 0.79 ___ Ao V2 mean: 74.1 cm/sec LV V1 max P.7 mmHg LV V1 mean P.2 mmHg LV V1 max: 82.2 cm/sec LV V1 mean: 49.5 cm/sec LV V1 VTI: 19.2 cm ___ SV(LVO T): 68.6 ml Electr onical ly signed by: Ar cruz on 2024 08:[address] maxine: Ar cruz 2024 08:39 AM Dictat ed By: Ar cruz MD Signed By: 0839 DD/DT: 13 TD/TT: 39 Transc riptio nist: [facility] Radiology Department [address] [place], [address], 10/10/2024 13:38:32 10/11/19 25 10/10/2024 elect vinny vela am No observ ation record ed. belinda [facility] [address], [place], [address], 10/11/2024 07:55:46 12/01/1907/23/2024 MRI, pelvi s, w/wo contr ast No observ ation record ed. [email or web address] [facility] [address] [place], [address], 12/08/2024 16:10:55 12/08/1907/23/2024 imagi ng/di agnos tic resul t No observ ation record ed. [email or web address] Not Available 2024 14:19:50 Result Notes None recorded. Problems Name Problem SNOMED Code Status Onset Date Resolution Date Notes Provider Name and Address Organization Details Recorded Time Ureteric stone 36842933 Completed 12/26/2019 Karen Howard RN null, [facility] 0 11:01:21 Urinary tract infectious disease 81760118 Completed 12/26/2019 Karen Howard RN null, [facility] 0 11:01:15 Depressive disorder 69663543 Active 2021 Maura Narayan LPN null, [facility] 2 16:14:13 Chronic pain 52046883 Active 2021 CHINO Barillas, [facility] 2 16:14:20 Postural dizziness 341062899 Active Brenda Tong pollo [facility] 5 09:31:50 Problem Notes None recorded. Procedures Surgical History Date Name Laterality Status Provider Name and Address Organization Details Recorded Time 06/30/20 19 Date of Last Mammogram completed Kathrin sutherland MA [facility] 04/20/2020 13:37:58 01/20/20 19 excision of cyst completed Mary Hinds [facility] 02/08/2019 09:35:35 12/25/19 19 Date of Last Pap Smear completed Kathrin sutherland MA [facility] 04/20/2020 13:38:16 01/05/20 18 Colposcopy completed Jose Cruz Mantilla MD [facility] 01/04/2018 13:55:31 06/02/20 17 Vulvar Biopsy/Excision completed Jose Cruz Mantilla MD [facility] 06/02/2017 14:05:32 05/29/20 17 Paracervical Nerve Block completed Jose Cruz Mantilla MD [facility] 06/01/2017 09:42:52 05/29/20 17 LEEP completed Jose Cruz Mantilla MD [facility] 06/01/2017 09:42:43 04/24/20 17 established patient counseling (25-39 minutes) completed Jose Cruz Mantilla MD [facility] 05/02/2017 10:53:11 04/06/20 17 Colposcopy completed Jose Cruz Mantilla MD [facility] 04/06/2017 15:29:51 05/26/20 16 EXTRA CORPOREAL SHOCKWAVE LITHOTRIPSY (SURG) completed Yudi Quintanilla [facility] 05/28/2016 11:38:37 04/14/20 16 EXTRA CORPOREAL SHOCKWAVE LITHOTRIPSY (SURG) completed Sandra Cancino [facility] 04/16/2016 09:23:04 04/14/20 16 EXTRA CORPOREAL SHOCKWAVE LITHOTRIPSY (SURG) completed Annelise Ordonez [facility] 06/02/2016 11:44:09 04/02/20 16 CYSTOSCOPY (SURG) completed Sandra Cancino [facility] 04/04/2016 11:19:50 Imaging Results Imaging Date Name Status LastModified by Organization Details LastModified Time 08/02/2024 electrocardiogram completed [email or web address] [facility] 20[address] [facility] [address], [address], 08/02/2024 15:17:48 08/02/2024 electrocardiogram completed [email or web address] [facility] [address] [facility] [address], [place], [address], 08/09/2024 08:32:31 10/04/2024 US, echocardiogram, transthoracic, complete, w/ color flow completed [facility] Radiology Department [address] [place] [address], [address], 10/10/2024 13:38:32 10/10/2024 electrocardiogram completed belinda [facility] [address], [address], 10/11/2024 07:55:46 07/23/2024 MRI, pelvis, w/wo contrast completed [facility] [address] [place], [address], 12/08/2024 16:10:55 07/23/2024 imaging/diagnostic result completed [email or web address] Information not available 12/07/2024 14:19:50 Procedure Notes None recorded. Medical Equipment None Reported. Allergies Allergen ID Allergen Name Allergen Category Reaction Reaction Severity Criticality Documentation Date Start Date Code Code System Note Provider Name and Address Organization Details Recorded Time 007088 ampicilli n medicatio n rash Not available Not available 04/01/2016 733 RxNorm Annelise abad [facility] 6 13:51:57 053313 amoxicill in medicatio n nausea Not available Not available 04/01/2016 723 RxNorm Annelise abad [facility] 6 13:52:31 950959 erythromy juancarlos medicatio n Not available Not available Not available 03/23/2017 4053 RxNorm OXANA Cat [place] - [facility] 7 14:40:38 Medications Name Sig Start Date Stop Date Status Note LastModified by Organization Details LastModified Time cyclobenza cruz 10 mg tablet TAKE 1/2 TO 1 TAB NEEDED FOR MUSCLE SPASM 2 TIMES A DAY. 11/30 completed as needed -kr Not Available Not Available [...] TIMES A DAY DIRECTED FOR MUSCLE SPASM 11/30 completed as needed -kr Not Available Not Available [...] completed Not Available Not Available Not Available FE 10/03 (28) 1 mg-20 mcg (21)/75 mg (7) tablet TAKE 1 TAB(S) ORALLY ONCE A DAY active Not Available Not Available No t Available Aleve prn 11/30 completed Not Available Not Available Not Available Vitamin D3 01/04 completed Not Available [...] mm[Hg] 130 mm[Hg] 82 mm[Hg] Sofia Sun [facility] 4 14:17:38 Date Recorded Body height Body mass index (BMI) Body weight Heart rate Oxygen saturation Oxygen saturation in Arterial blood by Pulse oximetry Systolic blood pressure Diastolic blood pressure Provider Name and Address Organization Details Last Updated DateTime 4 165.1 cm 30.6 kg/m2 55040 g 92 /min 96 % 96 % 120 mm[Hg] 90 mm[Hg] Komal Dyson [facility] 4 13:56:06 Date Recorded Body height Body mass index (BMI) Body weight Oxygen saturation Oxygen saturation in Arterial blood by Pulse oximetry Heart rate Systolic blood pressure Diastolic blood pressure Provider Name and Address Organization Details Last Updated DateTime 4 165.1 cm 30.5 kg/m2 11889.4 g 98 % 98 % 101 /min 120 mm[Hg] 86 mm[Hg] Brendayudi Tong [facility] 4 10:47:40 Date Recorded Body height Body mass index (BMI) Body weight Heart rate Systolic blood pressure Diastolic blood pressure Provider Name and Address Organization Details Last Updated DateTime 5 165.1 cm 31.3 kg/m2 90019.3 7 g 102 /min 122 mm[Hg] 94 mm[Hg] JOSSELYN Pedroza [facility] 5 13:06:21 Date Recorded Body height Body mass index (BMI) Body weight Heart rate Oxygen saturation Oxygen saturation in Arterial blood by Pulse oximetry Systolic blood pressure Diastolic blood pressure Provider Name and Address Organization Details Last Updated DateTime 5 165.1 cm 31.3 kg/m2 17079.3 7 g 110 /min 98 % 98 % 136 mm[Hg] 84 mm[Hg] Brenda Tong [facility] 5 10:41:58 Social History Question Answer Notes LastModified by Organizat ion Details LastModified Time Tobacco Smoking Status Former Smoker Annelise Merygabrielle abad [facility] 04/01/2016 13:54:06 What Is Your Level Of Alcohol Consumption? 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 Urinary tr act infectious disease 51671428 N39.0 I started her on Levaquin pending the urine culture [id number] Domenic Sandoval MD [facility] [address] [place] [address] 05/22/2016 10:45:07 05/22/2016 12:34:50 Kidney stone 99950254 N20.0 Glenna still has a 4-5 mm left renal stone and pain. We discussed treatment options and she wants to repeat the ESWL [id number] Domenic Sandoval MD [address] [address] 07/01/2016 14:44:40 07/01/2016 15:38:06 Kidney stone 26427503 N20.0 Glenna is s/p eswl AND has no c/o. KUB is negative for stones. We discussed prevention . f/u as needed. [id number] Jose Cruz Mantilla MD [facility] [address] [place] [address] 03/23/2017 14:09:09 03/23/2017 16:44:29 Abnormal cervical Papanicolaou smear 716622516 R87.619 Discussed recommenda tion for colposcopy . Reviewed procedure and risks. Patient scheduled for colpo in 2 weeks. All questions answered and patient verbalized understand ing. HPV - Gabi n papillomavirus test positive 092991726 R87.705 [id number] Jose Cruz Mantilla MD [facility] [address] [place] [address] 04/06/2017 14:42:15 04/06/2017 16:48:36 Abnormal vaginal Papanicolaou smear 108941278 R87.629 Abnormal c ervical Papanicolaou smear 020056800 R87.619 Discussed recommenda tion for colposcopy . Reviewed procedure and risks. colposcopy completed without difficulty . All questions answered and patient verbalized understand ing. HPV - Gabi n papillomavirus test positive 851277255 R87.970 [id number] Jose Cruz Mantilla MD [facility] [address] [address] 04/24/2017 15:22:28 05/04/2017 14:04:08 Cervical intraepithelial neoplasia grade 2 236798437 N87.1 Patient with JUANCARLOS 1 and 2. [...] and patient verbalized understand ing. Will schedule. [id number] Jose Cruz Mantilla MD [facility] [address] [place] [address] 05/29/2017 10:51:39 05/29/2017 13:24:52 Dysplasia of cervix 97105247 N87.9 Unable to perform LEEP in the office due to posterior lip of the cervix being flush with posterior vaginal wall. Will schedule procedure in OR. All questions answered and patient verbalized understand ing. [id number] Jose Cruz Mantilla MD [facility] [address] [address] 06/02/2017 12:36:23 06/02/2017 13:53:16 Vaginitis and vulvovaginitis 342407205 N76.0 Abscess of vulva 3645083 1 N76.4 I&D performed without difficulty . Because of surroundin g erythema will start patient on keflex. No allergy to penicillin itself, but amoxicilli n caused nausea. Keflex rx sent. Call or RTO with return or worsening of symptoms. All questions answered and patient verbalized understand ing. Follow up for LEEP in early June or prn. [id number] Wilber Basurto III, MD [facility] [address] [place] [address] 06/30/2017 08:26:08 06/30/2017 09:23:01 Thoracic back pain 569512359 M54.6 on exam she is in moderate distress, crying during visit. ambulating normally, L sided paraspinou s muscl? e tendernes s but no palpable spasm however she is flinching away during exam. no midline tenderenss or deformitie s. limited extension and L rotation of cervical spine. no nuchal rigdity. xray today no acute findings. 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 4 tablets percocet provided. educated on medication side effects. educated on red flags, if these appear seek ER care. F/U with PCP this week for further management . [id number] Jose Cruz Mantilla MD [facility] [address] [address] 07/02/2017 09:53:42 07/02/2017 10:46:55 Postoperative visit 560045004 Z08 Patient doing well postop. Explained positive margins on LEEP specimen posteriorl y where cervix is flush with vagina. Will have patient follow up in 4 weeks or prn. Will also need repeat PAP with ECC in 4-6 months due to positive margins. ECC was negative. All questions answered and patient verbalized understand ing. [id number] Jose Cruz Mantilla MD [facility] [address] [address] 08/13/2017 11:14:06 08/13/2017 11:49:42 Postoperative visit 142756887 Z08 ? Dysplasia of cervix 7339 1008 N87.9 Patient doing well postop. Explained positive margins on LEEP specimen posteriorl y where cervix is flush with vagina. Repeat PAP with ECC in 4 months due to positive margins. ECC was negative. All questions answered and patient verbalized understand ing. [id number] Jose Cruz Mantilla MD [address] [address] 12/10/2017 08:54:32 12/10/2017 10:02:37 Cervical intraepithelial neoplasia grade 2 665656741 N87.1 Patient with JUANCARLOS 2 on LEEP specimen. Here for repeat pap and ECC since margins were positive at time of LEEP If abnormal, may need repeat colposcopy . All questions answered and patient verbalized understand ing. [id number] Jose Cruz Mantilla MD [facility] [address] [address] 01/04/2018 11:24:44 01/04/2018 12:02:19 Dysplasia of cervix 53700934 N87.9 Patient doing well postop. Explained positive margins on LEEP specimen posteriorl y where cervix is flush with vagina. Repeat PAP with ECC showed LSIL. Colpo done today. Normal colposcopy . ECC done. Already scheduled for repeat pap in June. Pending results, will do repeat pap smear then. Precaution s discussed. All questions answered and patient verbalized understand ing. [id number] Jose Cruz Mantilla MD [facility] [address] [address] 06/15/2018 09:08:28 06/15/2018 11:24:54 Abnormal cervical Papanicolaou smear 706699902 R87.612 Patient with h/o Juancarlos 2 s/p LEEP. Colpo in 12/2017 benign. Repeat pap done today. All questions answered and patient verbalized understand ing. [id number] Jose Cruz Mantilla MD [facility] [address] [address] 12/24/2018 08:52:16 12/24/2018 14:23:04 Specialized medical examination 29616239 Z01.419 Reinforced healthy diet, lifestyle, and exercise Patient reminded to report postmenopa usal bleeding Patient counseled regarding self breast exams Patient counseled regarding osteoporos is prevention Patient counseled regarding need for screening colonoscop y and recommende d pt contact PCP regarding referral for colonoscop y. Patient counseled regarding Sexual health Screening mammography 24 619084 Z12.31 Screening for malignant neoplasm of cervix 717193952 Z12.4 Venereal d isease screening 013308575 Z11.3 Lesion of scalp 93993295 91 00 L98.9 Patient desires removal. Will refer to general surgery. // LGI [id number] Marko Dent MD [facility] [address] [place] [address],[facility] [place] [address] 01/04/2019 09:07:04 01/04/2019 09:27:48 Pilar cyst of scalp 487666347 L72.11 Rather prominent symptomati c pilar cyst of the left scalp. We have scheduled the patient for an excision of this in the local room on 01/19/19 at [facility]. 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 I would not recommend removal of these unless there is significan t enlargemen t. [id number] Jose Cruz Mantilla MD [facility] [address] [place] [address], [address] [place] [address] 04/20/2020 13:29:34 04/20/2020 15:31:10 Specialized medical examination 83862520 Z01.419 Reinforced healthy diet, lifestyle, and exercise Patient reminded to report postmenopa usal bleeding Patient counseled regarding self breast exams Patient counseled regarding osteoporos is prevention Patient counseled regarding need for screening colonoscop y and recommende d pt contact PCP regarding referral for colonoscop y. Patient counseled regarding Sexual health Screening mammography 24 086798 Z12.31 Screening for malignant neoplasm of cervix 886124703 Z12.4 [id number] Britni Hwang MD [facility] [address] [place] [address] 09/16/2022 12:16:06 09/16/2022 13:57:37 Viral upper respiratory tract infection 498415970 J06.9 H & P consistent with Upper [...] cough due to URI and viral illness.Re cently had several steroid treatments for back pain and hives.Disc ussed worsening sx. Please consult your PCP office promptly if you develop any of the following symptoms: A fever of at least 101? ? ?F or 38.4? ? ?C Cough that is severe or does not start to improve within 5 to 7 days Call for an ambulance or go to the emergency room if you: Have trouble breathing Experienci ng worsening chest pain Have swelling of the neck or tongue [id number] Britni Hwang MD [facility] [address] [address] 01/04/2024 15:30:35 01/04/2024 18:30:08 Low back pain 750223394 M54.50 H & P suggestive of Back [...] You are not getting better as expected. [id number] Britni Hwang MD [facility] [address] [address] 05/11/2024 13:19:25 05/11/2024 14:44:44 Cough 19842964 R05.9 neg for flu, will check for [...] hygiene, cough drops, pineapple, and honey. Lightheadedness 55837838 8 R42 workup as below. see vertigo. Vertigo 543536253 R42 Differenti al includes viral syndrome (such as flu, covid), vestibular neuritis, sinusitis, BPPV. Suspect viral syndrome. She is to monitor symptoms closely for resolution and should follow-up with PCP if symptoms not resolving over the next week, sooner if worsening. Discussed indication s for ER. Patient states understand s and agrees with plan of care. see cough. [id number] Yohana Covington MD [facility] [address] [address] 08/02/2024 13:45:49 08/02/2024 15:14:24 Chronic pain 46789937 G89.29 in back w/ flare that started this year.still w/ painfollow up w/ spine centercont w/ HEP Impaired g lucose tolerance 4632803 R73.02 w/ prior labscheck labs Dizziness 044033183 R42 intermitte ntuncertai n causecont w/ adequate hydrationh x of near syncope so will r/o cardiac origin Near syncope 783188261 R 55 ekg w/ some IVCD-refer to cardiology [id number] Yohana Covington MD [facility] [address] [facility] [place] [address] 09/01/2024 10:28:09 09/01/2024 11:42:14 Near syncope 671628062 R55 ekg w/ some IVCD-await ing echo and cardiology consult Dizziness 272286240 R42 intermitte ntnew room spinning dizziness suggestive for mild vertigo.re viewed etiology and treatment options.De clined script for meclizine. reviewed OTC med she can try.cont w/ adequate hydrationT here is also a different type of dizziness she experience s associated w/ the near syncopehx of near syncope so will r/o cardiac origin [id number] Dean Morales MD [facility] [address] [place] [address] 10/10/2024 12:51:23 10/10/2024 13:47:24 Vertigo 241031664 R42 Vasovagal symptom 107774 009 R55 [id number] Yohana Covington MD [facility] [address] [place] [address] OXANA PAIGE [address] 11/30/2024 10:29:19 11/30/2024 11:22:36 Postural dizziness 637034127 R42 R55 resolved. Degenerati on of lumbar intervertebral disc 75721032 M51.362 will refer for a second opinionspe cialist note does not explain why fusion is not an option for her at this time. Health Concerns Section Related Observation LastModified by Organization Detai ls LastModified Time None Recorded Concern Status LastModified by Organization Details LastModified Time None Recorded Advance Directives Directive None Recorded Payers Encounter Date Sequence Insurance Name Policy Number Policy Jasmine Covered Member ID Jasmine Member ID Guarantor Name 05/11/2024 1 [employer] [employer] (HMO) Glenna Clark [id number] Glenna Clark 08/02/2024 1 [facility] HP (HMO) Glenna Clark [id number] Glenna Clark 09/01/2024 1 [employer] [facility] [employer] (HMO) Glenna Clark [id number] Glenna Clark 10/10/2024 1 [employer] [employer] (HMO) Glenna Clark [id number] Glenna Clark 11/30/2024 1 [employer] (HMO) Glenna Clark [id number] Glenna Clark Notes Date Note Type Note Provider Name and Address Organization Details Recorded Time 05/11/2024 text/html [id number] presents w ith headache/dizziness. Pt states that this has been a few weeks, pts reports today headache, ringing ears and feels dizzy. Pt states she has seen her pcp who told her to drink for fluids to not get dehydrated. locates ANDER over the top of her head and towards the left side, also accompanied by photophobia, and phonophobia. has also had intermittent vertigo, today was significantly worse. also c/o tinnitus bilat ears. also c/o nausea. no fevers. rates ANDRE at 4-5/10. also c/o malaise (for the last 2 weeks). Britni Hwang MD [address] [place], [phone], [facility] 05/19/2024 22:55:02 08/02/2024 text/html Pt presents as NPOV for establishing care.Reports she got hurt earlier this year and is in the middle of a disability claim. Seeing a technical training specialist for years and is following w/ them for this new injury at work after changing jobs that required lots of bending.Followed by [facility].She is also followed by chiropractor.Had an injection that didn't workMRI 07/23-She just started w/ alf disability and the insurance is suggesting she [...] nausea when standing about a month ago. [place] like she was going to faint. Needed help to get next door.Remote hx of syncope and once started to pass out while standing at a concert. Yohana Covington MD [address] [place], [phone], [facility] 08/04/2024 15:03:18 09/01/2024 text/html pt presents toda y for [...] upcoming echo and cardiology appt in [place]. Yohana Covington MD [address] [place] [address], [phone], [facility] 09/05/2024 09:47:36 10/10/2024 text/html Glenna has no significant past medical history and comes today for further evaluation of dizziness and vertigo. She reports classic vertigo that started this past fall. She notices it if she changes position such as laying in bed or turning her head she will get a sensation that the room is spinning. The symptoms seem to wax and wane and sometimes last all day and sometimes not present at all. She also has a second concern and that is of intermittent dizziness and near syncope. She reports that since she has been an early teenager she has had episodes of orthostatic dizziness. She actually had a few episodes in high school where she had near syncope. This is been present for 40+ years intermittently. Over the last year or so seems to be getting a little bit more prominent. She described an episode where she was standing in [place] lobby for a length of time and all of a sudden felt her usual prodrome of a hot flash and a sensation that the blood was draining out of her head. She had to sit back onto a pole in order for the symptoms to pass. This is typical for these episodes. She does note that if she gets up quickly she will feel dizzy. She denies any chest pain or shortness of breath and denies any sensation of palpitations. She does report other family members with diagnosis of POTS. Dean Morales MD [address] [place], [phone], [facility] 10/10/2024 13:47:36 11/30/2024 text/html Patient presents to the office today for presyncope and dizziness. Pt stated the [place] for the MRI, herniated L5-S1. She saw a surgeon Dr Javed and Dr. Frankel at [place] (), and would like to do an intercept . She would like a second opinion. -kr Dizziness has improved- still occasional sx.Pt presents to discuss back pain and getting an second opinionSpecialist she saw rec Intercept procedure.She was getting injections but the last one didn't work. (SI joint) She thought it might have been in the wrong location.They talked about a fusion but they said no and came back w/ ablation.She said they didn't explain why they were opposed to the fusion.This other procedure is new and she is not sure she wants to do it.Worried if it stops her pain- it still isn't fixing the problem so how will she know if she is causing more injury if she doesn't feel pain. Yohana Covington MD [address] [place] [address], [phone], [facility] 12/07/2024 09:40:17 OBGyn Episode No OBEpisode recorded.
== END 2025-01-04 11:07 | disposition home or self-care (01) ==
LOC: HO.HNS 10:29
PROVIDERS: PCP Internal Medicine; Visit Provider Neurological Surgery
DX: M54.51 Vertebrogenic low back pain (principal)
CPT/HCPCS: 99212

== ENCOUNTER → 2025-01-04 10:28 | Outpatient (BNVA) | payer OTHER, SELFPAY | PROVIDERS: PCP Internal Medicine; Visit Provider Neurological Surgery ==